=== PATIENT | male | born 1990 | race Caucasian/White ===

== ENCOUNTER 2017-01-07 16:26 | Emergency (ER) | payer OTHER ==
[2017-01-07 16:33] VITALS: BP 135/89; PULSE 75; RESP 17; TEMP 98.6
--- NOTE | 2017-01-07 17:14 | ED ---
Lower Extremity Injury HPI - General Chief Complaint: Extremity Injury, Lower Stated Complaint: Toe Pain Source: patient Mode of arrival: ambulatory Limitations: no limitations - History of Present Illness Initial Comments: Patient is a 26-year-old male who presents for evaluation for right big toe pain. Past medical history as below. Patient stated that the pain center 3 days ago. He is unsure if he "stubbed" it on something or dropped some shingles on it. Stable to ambulate on it. He has a history of broken toes in the past and states it feels similar. No history of gout. No overlying rashes. Denies any systemic symptoms such as fever, chills, headache, changes in vision, URI symptoms, shortness breath, cough, chest pain, nausea or vomiting , diarrhea, pain or burning with urination. - Related Data Home Medications Medication Instructions Recorded Confirmed No Known Home Medications [No 01/07/17 01/07/17 Known Home Medications] Allergies Allergy/AdvReac Type Severity Reaction Status Date / Time poison deanna extract Allergy Severe Rash/Hives Verified 01/07/17 17:02 strawberry Allergy Rash/Hives Verified 01/07/17 17:02 Review of Systems ROS Statement: Those systems with pertinent positive or pertinent negative responses have been documented in the HPI. ROS Other: All systems not noted in ROS Statement are negative. Past Medical History Additional Past Medical History / Comment(s): broken right hand, concussion History of Any Multi-Drug Resistant Organisms: None Reported Past Surgical History: No Surgical Hx Reported Past Psychological History: Anxiety, Depression Smoking Status: Current every day smoker Past Alcohol Use History: None Reported Past Drug Use History: Marijuana General Exam Limitations: no limitations General appearance: alert, in no apparent distress, other (No acute distress) Head exam: Present: atraumatic, normocephalic, normal inspection Eye exam: Present: normal appearance, PERRL, EOMI. Absent: scleral icterus, conjunctival injection, periorbital swelling ENT exam: Present: normal exam, mucous membranes moist Neck exam: Present: normal inspection. Absent: tenderness, meningismus, lymphadenopathy Respiratory exam: Present: normal lung sounds bilaterally. Absent: respiratory distress, wheezes, rales, rhonchi, stridor Cardiovascular Exam: Present: regular rate, normal rhythm, normal heart sounds. Absent: systolic murmur, diastolic murmur, rubs, gallop, clicks GI/Abdominal exam: Present: soft, normal bowel sounds. Absent: distended, tenderness, guarding, rebound, rigid Extremities exam: Present: normal inspection, full ROM, normal capillary refill , other (Pain with palpation of the PIP of the right first digit. No surrounding cellulitis or any real swelling. Full range of motion of the right knee, right ankle, right midfoot.). Absent: tenderness, pedal edema, joint swelling, calf tenderness Back exam: Present: normal inspection Neurological exam: Present: alert, oriented X3, CN II-XII intact Psychiatric exam: Present: normal affect, normal mood Skin exam: Present: warm, dry, intact, normal color. Absent: rash Course Vital Signs 01/07/17 16:30 Temperature 98.6 F Pulse Rate 75 Respiratory 17 Rate Blood Pressure 135/89 O2 Sat by Pulse 99 Oximetry Medical Decision Making - Medical Decision Making 1710: Patient is a 26-year-old male percents for evaluation for right foot pain. Questionable history of trauma. We'll order plain films of the right foot. 1750: Reviewed plain films. No acute fracture. Discussed with the patient. Doubt gout as there is no warmth to the area. Recommended 600 800 mg ibuprofen every 6-8 hours for the next 3 days. Elevation. Ice to the affected area. Provided walking boot. Encourage close follow-up with his primary care physician. Discussed signs and symptoms on when to return to the emergency department for further evaluation. Comfortable discharge home and follow-up. Disposition Clinical Impression: Foot pain, right Disposition: HOME SELF-CARE Condition: Good Instructions: Foot Sprain (ED) Referrals: None,Stated [Primary Care Provider] - 1-2 days Mik Paez MD [STAFF PHYSICIAN] - 1-2 days
--- NOTE | 2017-01-07 17:46 | XR ---
EXAMINATION TYPE: XR foot complete RT DATE OF EXAM: 01/07/2017 COMPARISON: NONE HISTORY: Pain TECHNIQUE: 3 views FINDINGS: Metatarsals are intact. I see no fracture nor dislocation. There are no erosions. IMPRESSION: Negative right foot exam.
== END 2017-01-07 18:31 | disposition home or self-care (01) ==
LOC: EC 16:26
DX: M79.671 Pain in right foot (principal); F17.200 Nicotine dependence, unspecified, uncomplicated; Z91.018 Allergy to other foods; Z91.09 Other allergy status, other than to drugs and biological substances
CPT/HCPCS: 99283

== ENCOUNTER 2017-02-09 16:45 | Emergency (ER) | payer OTHER ==
[2017-02-09 16:59] VITALS: BP 126/69; PULSE 69; RESP 16; TEMP 98
--- NOTE | 2017-02-09 17:16 | ED ---
General Adult HPI - General Chief complaint: Head Injury Stated complaint: Head Pain Time Seen by Provider: 02/09/17 17:04 Source: patient, RN notes reviewed Mode of arrival: ambulatory Limitations: no limitations - History of Present Illness Initial comments: 26 yo male presents to the emergency Department chief complaint of head injury. The patient states that last Saturday he fell backwards and hit his head when he is walking his dog. Recent states he did not pass out after the fall. Patient states that he doesn't have residual headache. Patient admits to history of multiple concussions in the past so he was concerned. Patient denies any fever chills any neck pain. Patient states he hasn't had any other symptoms with this. Patient was concerned due to his continued headache so he thought that he should be evaluated.Patient denies any recent fever, chills, shortness of breath, chest pain, back pain, abdominal pain, nausea vomiting, numbness or tingling, dysuria or hematuria, constipation or diarrhea, visual changes, or any other current symptoms. - Related Data Home Medications Medication Instructions Recorded Confirmed No Known Home Medications [No 01/07/17 02/09/17 Known Home Medications] Allergies Allergy/AdvReac Type Severity Reaction Status Date / Time poison deanna extract Allergy Severe Rash/Hives Verified 02/09/17 17:04 strawberry Allergy Rash/Hives Verified 02/09/17 17:04 Review of Systems ROS Statement: Those systems with pertinent positive or pertinent negative responses have been documented in the HPI. ROS Other: All systems not noted in ROS Statement are negative. Past Medical History Additional Past Medical History / Comment(s): broken right hand, concussion History of Any Multi-Drug Resistant Organisms: None Reported Past Surgical History: No Surgical Hx Reported Past Psychological History: Anxiety, Depression Smoking Status: Current every day smoker Past Alcohol Use History: None Reported Past Drug Use History: Marijuana General Exam - General Exam Comments Initial Comments: General: The patient is awake and alert, in no distress, and does not appear acutely ill. Eye: Pupils are equal, round and reactive to light, extra-ocular movements are intact; there is normal conjunctiva bilaterally. No signs of icterus. Ears, nose, mouth and throat: There are moist mucous membranes. Neck: The neck is supple, there is no tenderness. Cardiovascular: There is a regular rate and rhythm. No murmur, rub or gallop is appreciated. Respiratory: Lungs are clear to auscultation, respirations are non-labored, breath sounds are equal. No wheezes, stridor, rales, or rhonchi. Gastrointestinal: Soft, non-distended, non-tender abdomen without masses or organomegaly noted. There is no rebound or guarding present. No CVA tenderness. Bowel sounds are unremarkable. Back: There is no tenderness to palpation in the midline. There is no obvious deformity. No rashes noted. Musculoskeletal: Normal ROM, no tenderness, There is no pedal edema. There is no calf tenderness or swelling. Sensation intact. Pulses equal bilaterally 2+. Neurological: CN II-XII intact, There are no obvious motor or sensory deficits. Coordination appears grossly intact. Speech is normal. Skin: Skin is warm and dry and no rashes or lesions are noted. Psychiatric: Cooperative, appropriate mood & affect, normal judgment. Limitations: no limitations Course Vital Signs 02/09/17 16:57 Temperature 98 F Pulse Rate 69 Respiratory 16 Rate Blood Pressure 126/69 O2 Sat by Pulse 98 Oximetry Medical Decision Making - Medical Decision Making 26-year-old male presents with chief complaint of head injury. This time CAT scan is reviewed and negative. At this time we discussed patient may be having concussion-like symptoms. We discussed care for concussions. We discussed follow-up return parameters all questions. Patient stated understanding and plan. This and will be discharged home. - Radiology Data Radiology results: report reviewed, image reviewed Disposition Clinical Impression: Concussion without loss of consciousness Disposition: HOME SELF-CARE Condition: Stable Instructions: Concussion (ED) Additional Instructions: Please use medication as discussed. Please follow up with family doctor if symptoms have not improved over the next two days. Please return to the emergency room if your symptoms increase or worsen or for any other concerns. Referrals: Dennis Domínguez MD [REFERRING] - 1-2 days Time of Disposition: 17:40
--- NOTE | 2017-02-09 17:38 | CT ---
EXAMINATION TYPE: CT brain wo con DATE OF EXAM: 02/09/2017 COMPARISON: 12/30/2011 INDICATION: Patient complains of fall with headache and memory loss. Patient has a history of prior concussions. DLP: 773.7 mGycm, Automated exposure control for dose reduction was used. CONTRAST: None CT of the brain is performed utilizing 3 mm thick sections through the posterior fossa and 3 mm thick sections through the remaining calvarium. Study is performed within 24 hours of arrival to the hosp [facility]. No abnormal hyperdensity is present to suggest an acute intracranial hemorrhage. No mass lesion is evident. No acute infarcts are evident. Ventricles and sulci are appropriate for the patient age. Paranasal sinuses and mastoid air cells within the [id number] are clear. IMPRESSIONS: 1. Normal CT Brain
== END 2017-02-09 18:04 | disposition home or self-care (01) ==
LOC: EC 16:45
DX: S06.0X0A Concussion without loss of consciousness, initial encounter (principal); F17.200 Nicotine dependence, unspecified, uncomplicated; Z91.018 Allergy to other foods; Z91.048 Other nonmedicinal substance allergy status; W01.10XA Fall on same level from slipping, tripping and stumbling with subsequent striking against unspecified object, initial encounter; Y93.01 Activity, walking, marching and hiking
CPT/HCPCS: 70450; 99283

== ENCOUNTER 2017-05-11 07:53 | Emergency (ER) | payer OTHER ==
[2017-05-11] MEDS ORDERED: SODIUM CHLORIDE 0.9% 1,000 ML IV STA (08:10)
[2017-05-11] MEDS ORDERED: ONDANSETRON 4 MG/2 ML VIAL IVP STA (08:14)
[2017-05-11] MEDS ORDERED: HYDROmorphone 1 MG/ML 1 ML SYRINGE IVP STA (08:14)
[2017-05-11] MEDS ORDERED: KETOROLAC 30 MG/ML 1 ML VIAL IVP STA (08:14)
--- NOTE | 2017-05-11 08:16 | ED ---
General Adult HPI - General Chief complaint: Urogenital Stated complaint: Hematuria/Groin Pain Time Seen by Provider: 05/11/17 08:10 Source: patient, RN notes reviewed Mode of arrival: ambulatory Limitations: no limitations - History of Present Illness Initial comments: This a 26-year-old male presents emergency Department with chief complaint of lower abdominal pain, hematuria. Patient states this started this morning with sudden onset of pain. Patient states that he's never had any like this in the past. Patient states that nothing really makes it feel better or worse. Patient denies fever, chills, vomiting, diarrhea constipation. He states he has slight nausea from the pain. Patient denies any prior abdominal surgeries no history of kidney stones. Patient states that he does not have any drug ALLERGIES and denies any other complaints at this time - Related Data Previous Rx's Medication Instructions Recorded Hydrocodone/Acetaminophen [Lomira 1 tab PO Q6HR PRN #20 tab 05/11/17 5-325] Ibuprofen [Motrin] 600 mg PO Q8HR PRN #30 tab 05/11/17 Ondansetron Odt [Zofran Odt] 4 mg PO Q8HR PRN #10 tab 05/11/17 Tamsulosin [Flomax] 0.4 mg PO DAILY #7 cap 05/11/17 Allergies Allergy/AdvReac Type Severity Reaction Status Date / Time poison deanna extract Allergy Severe Rash/Hives Verified 05/11/17 07:58 strawberry Allergy Rash/Hives Verified 05/11/17 07:58 Review of Systems ROS Statement: Those systems with pertinent positive or pertinent negative responses have been documented in the HPI. ROS Other: All systems not noted in ROS Statement are negative. Past Medical History Additional Past Medical History / Comment(s): broken right hand, concussion History of Any Multi-Drug Resistant Organisms: None Reported Past Surgical History: No Surgical Hx Reported Past Psychological History: ADD/ADHD, Anxiety Smoking Status: Current every day smoker Past Alcohol Use History: Rare Past Drug Use History: Marijuana General Exam Limitations: no limitations General appearance: alert, in no apparent distress Head exam: Present: atraumatic, normocephalic, normal inspection Respiratory exam: Present: normal lung sounds bilaterally. Absent: respiratory distress, wheezes, rales, rhonchi, stridor Cardiovascular Exam: Present: regular rate, normal rhythm, normal heart sounds. Absent: systolic murmur, diastolic murmur, rubs, gallop, clicks GI/Abdominal exam: Present: soft, tenderness (Moderate suprapubic tenderness), normal bowel sounds. Absent: distended, guarding, rebound, rigid exam: Present: normal inspection. Absent: testicular tenderness, scrotal swelling, vertical testicular lie Back exam: Present: full ROM. Absent: tenderness, CVA tenderness (R), CVA tenderness (L) Skin exam: Present: warm, dry, intact, normal color. Absent: rash Course Vital Signs 05/11/17 05/11/17 07:55 09:34 Temperature 98.8 F Pulse Rate 106 H 64 Respiratory 22 18 Rate Blood Pressure 125/78 106/57 O2 Sat by Pulse 96 98 Oximetry Medical Decision Making - Medical Decision Making 26-year-old male present emergency department for lower abdominal pain, or flank pain. Patient has multiple bilateral nephrolithiasis. Patient has hematuria consistent with kidney stones. Patient pain worsened after urinate but did feel better after Toradol. Patient has noticed the pain no evidence of torsion. Patient we discharged with [facility] follow up with urology. - Lab Data Result diagrams: 05/11/17 08:20 05/11/17 08:20 Lab Results 05/11/17 05/11/17 05/11/17 Range/Units 08:09 08:20 08:20 WBC 8.1 (3.8-10.6) k/uL RBC 4.85 (4.30-5.90) m/uL Hgb 14.3 (13.0-17.5) gm/dL Hct 44.8 (39.0-53.0) % MCV 92.4 (80.0-100.0) fL MCH 29.6 (25.0-35.0) pg MCHC 32.0 (31.0-37.0) g/dL RDW 13.1 (11.5-15.5) % Plt Count 232 (150-450) k/uL Neutrophils % 57 % Lymphocytes % 28 % Monocytes % 8 % Eosinophils % 6 % Basophils % 1 % Neutrophils # 4.6 (1.3-7.7) k/uL Lymphocytes # 2.2 (1.0-4.8) k/uL Monocytes # 0.6 (0-1.0) k/uL Eosinophils # 0.5 (0-0.7) k/uL Basophils # 0.0 (0-0.2) k/uL Sodium 142 (137-145) mmol/L Potassium 4.6 (3.5-5.1) mmol/L Chloride 109 H (98-107) mmol/L Carbon Dioxide 22 (22-30) mmol/L Anion Gap 11 mmol/L BUN 11 (9-20) mg/dL Creatinine 0.87 (0.66-1.25) mg/dL Est GFR (MDRD) Af Amer >60 (>60 ml/min/1.73 sqM) Est GFR (MDRD) Non-Af >60 (>60 ml/min/1.73 sqM) Glucose 96 (74-99) mg/dL Calcium 9.9 (8.4-10.2) mg/dL Total Bilirubin 0.7 (0.2-1.3) mg/dL AST 29 (17-59) U/L ALT 33 (21-72) U/L Alkaline Phosphatase 85 (38-126) U/L Total Protein 7.6 (6.3-8.2) g/dL Albumin 4.5 (3.5-5.0) g/dL Amylase 57 (30-110) U/L Lipase 82 (23-300) U/L Urine Color Light Red Urine Appearance Clear (Clear) Urine pH 6.5 (5.0-8.0) Ur Specific [place] 1.020 (1.001-1.035) Urine Protein 1+ H (Negative) Urine Glucose (UA) Negative (Negative) Urine Ketones Trace H (Negative) Urine Blood Large H (Negative) Urine Nitrite Negative (Negative) Urine Bilirubin Negative (Negative) Urine Urobilinogen 2.0 (<2.0) mg/dL Ur Leukocyte Esterase Small H (Negative) Urine RBC >182 H (0-5) /hpf Urine WBC 8 H (0-5) /hpf Urine Mucus Many H (None) /hpf Disposition Clinical Impression: Nephrolithiasis, Hematuria Disposition: HOME SELF-CARE Condition: Stable Instructions: Kidney Stones (ED) Additional Instructions: Please return to the Emergency Department if symptoms worsen or any other concerns. Prescriptions: Hydrocodone/Acetaminophen [Lomira 5-325] 1 tab PO Q6HR PRN #20 tab PRN Reason: Pain Ibuprofen [Motrin] 600 mg PO Q8HR PRN #30 tab PRN Reason: Pain Ondansetron Odt [Zofran Odt] 4 mg PO Q8HR PRN #10 tab PRN Reason: Nausea Tamsulosin [Flomax] 0.4 mg PO DAILY #7 cap Referrals: Gilbert Andre DO [Primary Care Provider] - 1-2 days Sebastian Gardner MD [STAFF PHYSICIAN] - 1-2 days Time of Disposition: 10:11
[2017-05-11 08:29] LABS: Basophils % (A) 1 %; CH 30.4; CHCM 33.1; Eosinophils # (A) 0.5 k/uL (0-0.7); Eosinophils % (A) 6 %; HCT 44.8 % (39.0-53.0); HDW 2.18; HGB 14.3 gm/dL (13.0-17.5); Luc # (Auto) 0.12; Luc % (Auto) 2; Lymphocytes # (A) 2.2 k/uL (1.0-4.8); Lymphocytes % (A) 28 %; MCH 29.6 pg (25.0-35.0); MCV 92.4 fL (80.0-100.0); Monocytes # (A) 0.6 k/uL (0-1.0); Monocytes % (A) 8 %; Neutrophils # (A) 4.6 k/uL (1.3-7.7); Neutrophils % (A) 57 %; RBC 4.85 m/uL (4.30-5.90); RDW 13.1 % (11.5-15.5); WBC 8.1 k/uL (3.8-10.6); WBC (Perox) 8.54
[2017-05-11 08:31] LABS: Appearance,Urine Clear (Clear); Bilirubin,Urine Negative (Negative); Glucose,Urine (UA) Negative (Negative); Ketones,Urine Trace (Negative); Leukocyte Esterase,Urine Small (Negative); Mucus,Urine Many /hpf; Nitrite,Urine Negative (Negative); PH, Urine 6.5 (5.0-8.0); Particle Count 6548; Protein,Urine 1+ (Negative); RBC,Urine >182 /hpf (0-5); UA Billing (MACRO vs. MICRO) MICRO; WBC,Urine 8 /hpf (0-5)
--- NOTE | 2017-05-11 08:38 | XR ---
EXAMINATION TYPE: XR KUB , 2 VIEWS DATE OF EXAM ORDERED: 05/11/2017 HISTORY: abdominal pain. COMPARISON: None. FINDINGS: The lung bases are clear. Within the abdomen, the abdominal gas pattern is normal. There is no evidence of obstruction or free air. No unusual calcifications are seen. IMPRESSION: NORMAL ABDOMEN.
[2017-05-11 08:39] LABS: ALT 33 U/L (21-72); AST 29 U/L (17-59); Alkaline Phosphatase 85 U/L (38-126); Amylase 57 U/L (30-110); Anion Gap 11 mmol/L; Blood Urea Nitrogen 11 mg/dL (9-20); Calcium 9.9 mg/dL (8.4-10.2); Carbon Dioxide 22 mmol/L (22-30); Chloride 109 mmol/L (98-107); Glucose 96 mg/dL (74-99); Non-African American GFR(MDRD) >60 (>60 ml/min/1.73 sqM); Potassium 4.6 mmol/L (3.5-5.1); Sodium 142 mmol/L (137-145); Total Bilirubin 0.7 mg/dL (0.2-1.3); Total Protein 7.6 g/dL (6.3-8.2)
[2017-05-11 09:36] VITALS: RESP 18
--- NOTE | 2017-05-11 09:41 | CT ---
EXAMINATION TYPE: CT abdomen pelvis wo con DATE OF EXAM: 05/11/2017 COMPARISON: NONE HISTORY: Low pelvic pain CT DLP: 239.4 mGycm Automated exposure control for dose reduction was used. FINDINGS: Visualized portions of the lungs are clear. There is no pleural or pericardial fluid. The h eart is not enlarged. Within the abdomen, the liver, spleen and gallbladder are normal. Both adrenal glands are normal. There are multiple, nonobstructing renal calculi bilaterally. The largest on the right is in the midd le pole calyx and measures 3.7 mm. The largest on the left is in an upper pole calyx and measures 3.9 mm. Very Limited views of the pancreas are unremarkable. There is no significant retroperitoneal, iliac or inguinal adenopathy. The bladder is not distended but otherwise unremarkable. There is no significant diverticular change and there is no radiographic evidence of diverticulitis. The appendix is normal. There is mucosal thickening involving the sigmoid and descending colons. Small bowel loops are normal in caliber. There is no free fluid and no free air. No bony lesion is seen. IMPRESSION: 1. THICKENING OF THE DESCENDING AND SIGMOID COLON SUGGESTIVE OF COLITIS. PLEASE CORRELATE CLINICALLY. 2. BILATERAL, NONOBSTRUCTING NEPHROLITHIASIS.
[2017-05-11] MEDS ORDERED: HYDROmorphone 2 MG/ML 1 ML SYRINGE IVP STA (10:02)
[2017-05-11] MEDS ORDERED: TAMSULOSIN 0.4 MG CAP.ER.24H PO STA (10:09)
[2017-05-11 10:23] VITALS: BP 136/64; PULSE 66; TEMP 97.5
== END 2017-05-11 10:23 | disposition home or self-care (01) ==
LOC: EC 07:53
DX: N20.0 Calculus of kidney (principal); F17.200 Nicotine dependence, unspecified, uncomplicated; Z91.018 Allergy to other foods; Z91.09 Other allergy status, other than to drugs and biological substances; Z53.8 Procedure and treatment not carried out for other reasons
CPT/HCPCS: 99284; 96374; 96375 ×2; 96361; 36415; 80053; 82150; 83690; 85025; 81001; 87086; 74000; 74176; J1170; J2405; J1885

== ENCOUNTER → 2017-07-04 | Outpatient (CLI) | payer OTHER ==
[2017-07-04 15:51] LABS: Basophils # (A) 0.1 k/uL (0-0.2); Basophils % (A) 1 %; Eosinophils # (A) 0.2 k/uL (0-0.7); Eosinophils % (A) 3 %; HCT 41.7 % (39.0-53.0); HGB 13.4 gm/dL (13.0-17.5); Lymphocytes # (A) 2.1 k/uL (1.0-4.8); Lymphocytes % (A) 31 %; MCHC 32.1 g/dL (31.0-37.0); MCV 93.6 fL (80.0-100.0); Mean Platelet Volume 7.8; Monocytes # (A) 0.4 k/uL (0-1.0); Monocytes % (A) 7 %; Neutrophils # (A) 3.9 k/uL (1.3-7.7); Neutrophils % (A) 57 %; Platelet Count 168 k/uL (150-450); RBC 4.45 m/uL (4.30-5.90); RDW 13.1 % (11.5-15.5); WBC 6.7 k/uL (3.8-10.6)
[2017-07-04 15:52] LABS: Appearance,Urine Clear (Clear); Bilirubin,Urine Negative (Negative); Blood,Urine Negative (Negative); Color,Urine Yellow; Glucose,Urine (UA) Negative (Negative); Ketones,Urine Negative (Negative); Leukocyte Esterase,Urine Negative (Negative); Nitrite,Urine Negative (Negative); Protein,Urine Negative (Negative); Urobilinogen,Urine <2.0 mg/dL (<2.0)
[2017-07-04 16:01] LABS: Anion Gap 12 mmol/L; Blood Urea Nitrogen 15 mg/dL (9-20); Carbon Dioxide 27 mmol/L (22-30); Chloride 102 mmol/L (98-107); Potassium 4.1 mmol/L (3.5-5.1); Sodium 141 mmol/L (137-145)
== END | disposition home or self-care (01) ==
LOC: LABWHC1 15:27
PROVIDERS: ATTEND Urology
DX: N20.0 Calculus of kidney (principal)
CPT/HCPCS: 36415; 80051; 81003; 82565; 84520; 85025

== ENCOUNTER 2017-07-08 12:03 | Day surgery (SDC) | payer MEDICAID, OTHER ==
[2017-06-27 16:45] VITALS: BMI 21.1
--- NOTE | 2017-07-08 12:01 | XR ---
EXAMINATION TYPE: XR KUB DATE OF EXAM: 07/08/2017 COMPARISON: 05/11/2017 HISTORY: Renal stones TECHNIQUE: One view abdominal series FINDINGS: The osseous structures are intact. The bowel gas pattern is nonspecific. Right kidney: There remain approximately 4 punctate calcifications measuring 3 mm or less overlying t he right kidney. Visualization is somewhat limited on today's exam due to overlying bowel content. Left kidney: There appear to be at least 2 calcifications overlying the lower pole of the left kidney the largest measuring 4 mm. Findings are stable. Pelvis: 2 tiny pelvic calcifications on the left are stable from the previous exam and likely vascula r. IMPRESSION: 1. Nonspecific abdomen. Stable bilateral nephrolithiasis.
[~2017-07-08 12:03] MED LIST: Pre Op ABX Message 1 EACH MISC MISCELLANE ONE
[2017-07-08 12:37] VITALS: TEMP 98.1
[2017-07-08] MEDS ORDERED: LIDOCAINE 1% 20 ML VIAL (10MG/ML) FOR IV START INTRADERMA ONE (12:45)
[2017-07-08] MEDS ORDERED: LACTATED RINGERS 1,000 ML IV ONE (12:45)
[2017-07-08] MEDS ORDERED: PROPOFOL 10 MG/ML 20 ML VIAL IV ONE (14:01)
[2017-07-08] MEDS ORDERED: GLYCOPYRROLATE 0.2 MG/ML 2 ML VIAL ONE (14:01)
[2017-07-08] MEDS ORDERED: LIDOCAINE 1% INJ 10MG/ML (20 ML MDV) ONE (14:01)
[2017-07-08] MEDS ORDERED: KETAMINE 10 MG/ML 20 ML VIAL ONE (14:01)
[2017-07-08] MEDS ORDERED: MIDAZOLAM 2 MG/2 ML VIAL ONE (14:01)
[2017-07-08] MEDS ORDERED: fentaNYL (PF) 50 MCG/ML 2 ML AMP ONE (14:01)
--- NOTE | 2017-07-08 14:42 | P.OP ---
Date of Procedure: 07/08/17 Preoperative Diagnosis: Right renal calculi Postoperative Diagnosis: Right renal calcului Procedure(s) Performed: Extracorporal shockwave lithotripsy of right renal calculi Anesthesia: MAC Surgeon: Sebastian Gardner Estimated Blood Loss (ml): 0 Pathology: none sent Condition: stable Disposition: PACU Indications for Procedure: The patient is a 26-year-old male with intermittent right flank pain. Computed tomography scan identified several nonobstructive right renal calculi measuring up to 2 4 mm in diameter. Treatment options were reviewed with Dr. Santos and ESWL has been chosen. The patient is aware that there is no guarantee that his pain will resolve following treatment. Description of Procedure: The patient was taken to the operating suite where he was placed in the supine position on the fluoroscopy table. The 3-4 mm calculus in the midportion of the right kidney was localized using biplanar fluoroscopy. Intravenous sedation was given. Lithotripsy was performed using the Dornier compact delta unit at a rate of 60 shocks per minute. The power was gradually increased to level 4. A 2 minute pause was taken after 200 shocks. The calculus was no longer identifiable after 660 shocks. An attempt was then made to identify another calculus in the mid pole of the kidney but at this point the patient began coughing and required repositioning. Despite multiple attempts it was impossible to identify any additional calculi within the kidney. Anesthesia was reversed and the patient was returned the recovery room awake and in satisfactory condition will be seen back in approximately 1 week for follow-up.
[2017-07-08 15:17] VITALS: BP 120/60; PULSE 65; RESP 16
[2017-07-08] MEDS ORDERED: Acetaminophen-Codeine 300-30mg TAB PO ONE (15:24)
== END 2017-07-08 15:55 | disposition home or self-care (01) ==
LOC: ORWHC2ENDO 12:03
PROVIDERS: ATTEND Urology
DX: N20.0 Calculus of kidney (principal); F17.210 Nicotine dependence, cigarettes, uncomplicated; F41.9 Anxiety disorder, unspecified; F90.9 Attention-deficit hyperactivity disorder, unspecified type; Z79.899 Other long term (current) drug therapy
CPT/HCPCS: 74018; 50590; J2250; J2001; J3010; J2704

== ENCOUNTER 2017-07-10 14:47 | Emergency (ER) | payer OTHER ==
[2017-07-10] MEDS ORDERED: METOCLOPRAMIDE 5 MG/ML 2 ML VIAL IVP STA (15:39)
[2017-07-10] MEDS ORDERED: SODIUM CHLORIDE 0.9% 1,000 ML IV STA (15:39)
[2017-07-10] MEDS ORDERED: HYDROmorphone 0.5 MG/0.5 ML SYRINGE IVP STA (15:39)
[2017-07-10] MEDS ORDERED: KETOROLAC 30 MG/ML 1 ML VIAL IVP STA (15:39)
--- NOTE | 2017-07-10 15:43 | ED ---
General Adult HPI - General Chief complaint: Abdominal Pain Stated complaint: Abd Pain Time Seen by Provider: 07/10/17 15:28 Source: patient, family, RN notes reviewed, old records reviewed Mode of arrival: wheelchair Limitations: no limitations - History of Present Illness Initial comments: Chief complaint and history of present illness this is a 26-year-old male known history of kidney stones. Several days ago the patient had lithotripsy performed. 3 hours ago started having flank pain nausea and vomiting. - Related Data Previous Rx's Medication Instructions Recorded Acetaminophen-Codeine 300-30mg 1 tab PO Q6H PRN #10 tablet 07/08/17 [Tylenol w/codeine #3] Hydrocodone/Acetaminophen [[place] 1 each PO Q6HR PRN #20 tab 07/10/17 5-325] Ondansetron Odt [Zofran Odt] 4 mg PO Q8HR PRN #10 tab 07/10/17 Tamsulosin [Flomax] 0.4 mg PO DAILY #14 cap 07/10/17 Allergies Allergy/AdvReac Type Severity Reaction Status Date / Time poison deanna extract Allergy Severe Rash/Hives Verified 07/10/17 15:25 strawberry Allergy Rash/Hives Verified 07/10/17 15:25 Review of Systems ROS Statement: Those systems with pertinent positive or pertinent negative responses have been documented in the HPI. Review of systems. No headache or visual acuity changes no chest pain or shortness of breath. The patient has left flank pain. Nausea vomiting. All systems are reviewed. Past medical problems no other medical problems other than kidney stones. Recently lithotripsy, several days ago. Surgeries none. Family history no stones or cancer. Patient has no ALLERGIES. He does smoke strongly encouraged. He denies alcohol use. ROS Other: All systems not noted in ROS Statement are negative. 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 no family history Past Psychological History: Anxiety, Depression Smoking Status: Current every day smoker Past Alcohol Use History: None Reported Past Drug Use History: Marijuana - Past Family History family Family Medical History: Unable to Obtain Additional Family Medical History / Comment(s): no family hx General Exam - General Exam Comments Initial Comments: General: The patient is awake and alert, in moderate distress because of left flank pain causing nausea vomiting and discomfort. Pain goes from the left flank to left lower quadrant and to the left groin area. Vital signs temperature 96.8 pulse 53 respiratory rate 18 pulse ox 99% room air blood pressure 138/69. Eye: Pupils are equal, round and reactive to light, extra-ocular movements are intact ; there is normal conjunctiva bilaterally. No signs of icterus. Ears, nose, mouth and throat: There are moist mucous membranes and no oral lesions. Neck: The neck is supple, there is no tenderness Cardiovascular: There is a regular rate and rhythm. No murmur, rub or gallop is appreciated. Respiratory: Lungs are clear to auscultation, respirations are non-labored, breath sounds are equal. No wheezes, stridor, rales, or rhonchi. Gastrointestinal: Left-sided abdominal pain radiating to the left groin area. Back: Left flank pain, no rash. Musculoskeletal: Normal movement upper and lower extremities. Neurological: No complaint of or evidence of any neuro deficits. Skin: Skin normal Limitations: no limitations Course Vital Signs 07/10/17 15:05 Temperature 96.8 F L Pulse Rate 53 L Respiratory 18 Rate Blood Pressure 138/69 O2 Sat by Pulse 99 Oximetry Medical Decision Making - Medical Decision Making Medical decision making; the patient's urine because of probable left ureterolithiasis. The patient had lithotripsy just several days ago, pain started acutely 3 hours ago. Urine is dark. Nausea vomiting. Labs show white count of 17.7 hemoglobin 13 hematocrit 40, potassium 3.4 BUN 10 creatinine 0.92 with a GFR greater than 60 and a glucose of 152. Urinalysis shows large amount of blood and greater than 182 red blood cells. No white blood cells. I reviewed the x-rays and it does appear to be some calcifications in the left lower quadrant, suspect stones versus phlebolith. Awaiting radiologist's final impression. X-ray of the abdomen was done and reviewed by radiologist his impression is; nonspecific abdomen. Nonvisualization of previous left sided renal stones. As read by Dr. Tracy Patient is feeling better after IV hydration and medications. advised to continue with medications prescribed by his urologist. Strain the urine. Call make an appointment with urologist if pain persists or return emergency room is unable to control the pain. Advised increase water intake. - Lab Data Result diagrams: 07/10/17 15:45 07/10/17 15:45 Lab Results 07/10/17 07/10/17 07/10/17 Range/Units 15:45 15:45 17:25 WBC 17.7 H (3.8-10.6) k/uL RBC 4.45 (4.30-5.90) m/uL Hgb 13.3 (13.0-17.5) gm/dL Hct 40.5 (39.0-53.0) % MCV 91.0 (80.0-100.0) fL MCH 29.9 (25.0-35.0) pg MCHC 32.9 (31.0-37.0) g/dL RDW 13.3 (11.5-15.5) % Plt Count 201 (150-450) k/uL Neutrophils % 71 % Lymphocytes % 22 % Monocytes % 4 % Eosinophils % 1 % Basophils % 0 % Neutrophils # 12.7 H (1.3-7.7) k/uL Lymphocytes # 3.9 (1.0-4.8) k/uL Monocytes # 0.7 (0-1.0) k/uL Eosinophils # 0.2 (0-0.7) k/uL Basophils # 0.1 (0-0.2) k/uL Sodium 143 (137-145) mmol/L Potassium 3.4 L (3.5-5.1) mmol/L Chloride 105 (98-107) mmol/L Carbon Dioxide 23 (22-30) mmol/L Anion Gap 15 mmol/L BUN 10 (9-20) mg/dL Creatinine 0.92 (0.66-1.25) mg/dL Est GFR (MDRD) Af Amer >60 (>60 ml/min/1.73 sqM) Est GFR (MDRD) Non-Af >60 (>60 ml/min/1.73 sqM) Glucose 156 H (74-99) mg/dL Calcium 9.8 (8.4-10.2) mg/dL Total Bilirubin 0.6 (0.2-1.3) mg/dL AST 22 (17-59) U/L ALT 33 (21-72) U/L Alkaline Phosphatase 76 (38-126) U/L Total Protein 7.3 (6.3-8.2) g/dL Albumin 4.6 (3.5-5.0) g/dL Urine Color Light Red Urine Appearance Cloudy (Clear) Urine pH 6.0 (5.0-8.0) Ur Specific [place] 1.017 (1.001-1.035) Urine Protein 1+ H (Negative) Urine Glucose (UA) Negative (Negative) Urine Ketones Negative (Negative) Urine Blood Large H (Negative) Urine Nitrite Negative (Negative) Urine Bilirubin Negative (Negative) Urine Urobilinogen <2.0 (<2.0) mg/dL Ur Leukocyte Esterase Trace H (Negative) Urine RBC >182 H (0-5) /hpf Urine WBC 7 H (0-5) /hpf Urine Mucus Few H (None) /hpf Disposition Clinical Impression: Ureterolithiasis Disposition: HOME SELF-CARE Condition: Fair Instructions: Kidney Stones (ED) Additional Instructions: Increase fluids, strain urine. Follow-up family physician and your urologist. Prescriptions: Hydrocodone/Acetaminophen [[place] 5-325] 1 each PO Q6HR PRN #20 tab PRN Reason: Pain Ondansetron Odt [Zofran Odt] 4 mg PO Q8HR PRN #10 tab PRN Reason: Nausea Tamsulosin [Flomax] 0.4 mg PO DAILY #14 cap Referrals: Sebastian Gardner MD [STAFF PHYSICIAN] - 1-2 days Time of Disposition: 18:38
[2017-07-10 15:50] LABS: Basophils # (A) 0.1 k/uL (0-0.2); Basophils % (A) 0 %; Eosinophils # (A) 0.2 k/uL (0-0.7); Eosinophils % (A) 1 %; HCT 40.5 % (39.0-53.0); HGB 13.3 gm/dL (13.0-17.5); Lymphocytes # (A) 3.9 k/uL (1.0-4.8); Lymphocytes % (A) 22 %; MCH 29.9 pg (25.0-35.0); MCHC 32.9 g/dL (31.0-37.0); Monocytes # (A) 0.7 k/uL (0-1.0); Monocytes % (A) 4 %; Neutrophils # (A) 12.7 k/uL (1.3-7.7); Neutrophils % (A) 71 %; Platelet Count 201 k/uL (150-450); RBC 4.45 m/uL (4.30-5.90); RDW 13.3 % (11.5-15.5); WBC 17.7 k/uL (3.8-10.6)
[2017-07-10 15:58] LABS: ALT 33 U/L (21-72); AST 22 U/L (17-59); Albumin 4.6 g/dL (3.5-5.0); Alkaline Phosphatase 76 U/L (38-126); Anion Gap 15 mmol/L; Blood Urea Nitrogen 10 mg/dL (9-20); Calcium 9.8 mg/dL (8.4-10.2); Carbon Dioxide 23 mmol/L (22-30); Chloride 105 mmol/L (98-107); Glucose 156 mg/dL (74-99); Potassium 3.4 mmol/L (3.5-5.1); Sodium 143 mmol/L (137-145); Total Bilirubin 0.6 mg/dL (0.2-1.3); Total Protein 7.3 g/dL (6.3-8.2)
--- NOTE | 2017-07-10 16:27 | XR ---
EXAMINATION TYPE: XR abdomen 2V DATE OF EXAM: 07/10/2017 COMPARISON: 07/08/2017 INDICATION: Abdomen pain left flank pain lithotripsy right side TECHNIQUE: Single view abdomen upright view FINDINGS: There is a nonspecific bowel gas pattern. Nonspecific small bowel gas is within the midabdomen. Colon ic bowel gas is present. Psoas margins are normal. No organomegaly is present. Renal stones are not identified. Previous left-sided renal stones are not identified. A couple of leroy cifications are within the left hemipelvis likely represent phleboliths. These were present previousl y. IMPRESSION: 1. Nonspecific abdomen. 2. Nonvisualization of previous left-sided renal stones.
[2017-07-10 17:41] LABS: Appearance,Urine Cloudy (Clear); Bilirubin,Urine Negative (Negative); Blood,Urine Large (Negative); Color,Urine Light Red; Glucose,Urine (UA) Negative (Negative); Ketones,Urine Negative (Negative); Leukocyte Esterase,Urine Trace (Negative); Mucus,Urine Few /hpf; Nitrite,Urine Negative (Negative); Protein,Urine 1+ (Negative); RBC,Urine >182 /hpf (0-5); Specific Gravity,Urine 1.017 (1.001-1.035); Urobilinogen,Urine <2.0 mg/dL (<2.0); WBC,Urine 7 /hpf (0-5)
[2017-07-10] MEDS ORDERED: ONDANSETRON 4 MG/2 ML VIAL IVP STA (18:41)
[2017-07-10] MEDS ORDERED: HYDROmorphone 2 MG/ML 1 ML SYRINGE IVP STA (18:44)
[2017-07-10 19:13] VITALS: BP 148/78; PULSE 62; RESP 16; TEMP 98.5
== END 2017-07-10 19:13 | disposition home or self-care (01) ==
LOC: EC 14:47
DX: N20.1 Calculus of ureter (principal); F17.200 Nicotine dependence, unspecified, uncomplicated; Z91.018 Allergy to other foods; Z91.09 Other allergy status, other than to drugs and biological substances
CPT/HCPCS: 36415; 80053; 85025; 81001; 87086; 74019; 99284; 96374; 96375 ×3; 96376; 96361 ×2; J1170 ×2; J2765; J2405; J1885

== ENCOUNTER → 2017-07-12 | Outpatient (CLI) | payer OTHER ==
--- NOTE | 2017-07-12 12:22 | XR ---
EXAMINATION TYPE: XR KUB DATE OF EXAM: 07/12/2017 COMPARISON: NONE HISTORY: Follow-up stones TECHNIQUE: One view abdominal series FINDINGS: The osseous structures are intact. The bowel gas pattern is nonspecific. Lung bases are clear. Renal outlines are obscured by overlying bowel content with extensive retained fecal debris. Left kidney: there 3 punctate calcifications measuring 3 mm or less involving the lower pole. Additio dirk, there suspicion for a calcification adjacent to the superior endplate of L4 on the left measur ing 3 mm in diameter which could been the course of the left ureter. Right kidney: Right renal outline is particularly limited due to severe retention of fecal debris. As sessment for renal calculus nondiagnostic. IMPRESSION: 1. Limited exam due to severe fecal retention obscuring renal outlines. At least 3 calcifications on the left are suspected involving the lower pole measuring 3 mm or less. Additionally a 3 mm mid left ureteral calculus is in the differential diagnosis as discussed above.
== END | disposition home or self-care (01) ==
LOC: RADXRMAIN 11:58
PROVIDERS: ATTEND Urology
DX: N20.0 Calculus of kidney (principal); K59.00 Constipation, unspecified
CPT/HCPCS: 74018

== ENCOUNTER → 2017-07-16 | Outpatient (CLI) | payer OTHER ==
--- NOTE | 2017-07-17 03:43 | MR ---
EXAMINATION TYPE: MR lumbar spine wo/w con DATE OF EXAM: 07/16/2017 COMPARISON: NONE HISTORY: Low back pain TECHNIQUE: Multiplanar, multisequence images of the lumbar spine were acquired utilizing [address] gadolinium contrast. The lumbar vertebra have normal alignment. Disc spaces are fairly well-maintained. There is a small p osterior central disc herniation at L5-S1. There is no paraspinal mass. There is no compression fract ure. I see no pathologic enhancement. The neural foramina are fairly well-maintained. There is no randy dence of focal bone destruction. IMPRESSION: Small posterior disc herniation at L5-S1. No spinal stenosis. No fracture.
== END | disposition home or self-care (01) ==
LOC: RADMRIMAIN 20:50
PROVIDERS: ATTEND Psychiatry & Neurology Neurology
DX: M51.17 Intervertebral disc disorders with radiculopathy, lumbosacral region (principal)
CPT/HCPCS: 72158; A9581

== ENCOUNTER 2017-07-20 13:11 | Emergency (ER) | payer OTHER ==
[2017-07-20] MEDS ORDERED: ONDANSETRON 4 MG/2 ML VIAL IVP STA (13:41)
[2017-07-20] MEDS ORDERED: HYDROmorphone 2 MG/ML 1 ML SYRINGE IVP STA (13:41)
[2017-07-20] MEDS ORDERED: SODIUM CHLORIDE 0.9% 1,000 ML IV STA (13:41)
[2017-07-20 13:55] LABS: Basophils # (A) 0.2 k/uL (0-0.2); Basophils % (A) 1 %; Eosinophils # (A) 0.3 k/uL (0-0.7); Eosinophils % (A) 2 %; HCT 44.8 % (39.0-53.0); HGB 14.1 gm/dL (13.0-17.5); Lymphocytes # (A) 4.2 k/uL (1.0-4.8); Lymphocytes % (A) 20 %; MCH 29.9 pg (25.0-35.0); MCHC 31.5 g/dL (31.0-37.0); MCV 94.9 fL (80.0-100.0); Mean Platelet Volume 8.3; Monocytes # (A) 1.1 k/uL (0-1.0); Monocytes % (A) 6 %; Neutrophils # (A) 14.5 k/uL (1.3-7.7); Neutrophils % (A) 70 %; Platelet Count 229 k/uL (150-450); RBC 4.72 m/uL (4.30-5.90); RDW 13.5 % (11.5-15.5); WBC 20.5 k/uL (3.8-10.6)
[2017-07-20 14:01] LABS: Appearance,Urine Clear (Clear); Bilirubin,Urine 2+ (Negative); Blood,Urine Large (Negative); Color,Urine Dark Brown; Glucose,Urine (UA) Negative (Negative); Ketones,Urine Negative (Negative); Leukocyte Esterase,Urine Negative (Negative); Mucus,Urine Occasional /hpf; Nitrite,Urine Positive (Negative); Protein,Urine Trace (Negative); RBC,Urine >182 /hpf (0-5); Specific Gravity,Urine 1.017 (1.001-1.035); WBC,Urine 34 /hpf (0-5)
--- NOTE | 2017-07-20 14:01 | ED ---
General Adult HPI - General Chief complaint: Abdominal Pain Stated complaint: Abd Pain Time Seen by Provider: 07/20/17 13:31 Source: patient, RN notes reviewed Mode of arrival: ambulatory Limitations: no limitations - History of Present Illness Initial comments: Patient 26-year-old male significant past medical history for kidney stones, who presents emergency room today with chief complaint of increased nausea vomiting and left-sided flank pain. Patient states that was diagnosed kidney stone one week ago. Patient states pain is increased days have increased nausea vomiting with it. Patient denies any other complaints or symptoms. Patient denies any recent fever, chills, shortness of breath, chest pain, numbness or tingling, dysuria or hematuria, constipation or diarrhea, headaches or visual changes, or any other complaints. - Related Data Home Medications Medication Instructions Recorded Confirmed Hydrocodone/Acetaminophen [[place] 1 tab PO Q6HR PRN 07/20/17 07/20/17 5-325] Previous Rx's Medication Instructions Recorded Acetaminophen-Codeine 300-30mg 1 tab PO Q6H PRN #10 tablet 07/08/17 [Tylenol w/codeine #3] Ondansetron Odt [Zofran Odt] 4 mg PO Q8HR PRN #10 tab 07/10/17 Tamsulosin [Flomax] 0.4 mg PO DAILY #14 cap 07/10/17 Allergies Allergy/AdvReac Type Severity Reaction Status Date / Time poison deanna extract Allergy Severe Rash/Hives Verified 07/20/17 13:19 strawberry Allergy Rash/Hives Verified 07/20/17 13:19 Review of Systems ROS Statement: Those systems with pertinent positive or pertinent negative responses have been documented in the HPI. ROS Other: All systems not noted in ROS Statement are negative. 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 no family history Past Psychological History: Anxiety, Depression Smoking Status: Current every day smoker Past Alcohol Use History: None Reported Past Drug Use History: Marijuana - Past Family History family Family Medical History: Unable to Obtain Additional Family Medical History / Comment(s): no family hx General Exam Limitations: no limitations General appearance: alert, other (Vomiting) Head exam: Present: atraumatic, normocephalic, normal inspection Eye exam: Present: normal appearance, EOMI ENT exam: Present: normal exam, mucous membranes moist Neck exam: Present: normal inspection, full ROM Respiratory exam: Present: normal lung sounds bilaterally. Absent: respiratory distress, wheezes, rales, rhonchi, stridor Cardiovascular Exam: Present: regular rate, normal rhythm, normal heart sounds. Absent: systolic murmur, diastolic murmur, rubs, gallop, clicks GI/Abdominal exam: Present: other ( Normal bowel sounds. Soft on palpation. Patient does have tenderness left lower and left flank.) Extremities exam: Present: normal inspection, full ROM, normal capillary refill. Absent: tenderness, pedal edema, joint swelling, calf tenderness Course Vital Signs 07/20/17 07/20/17 13:13 14:40 Temperature 99.0 F Pulse Rate 61 77 Respiratory 18 15 Rate Blood Pressure 137/87 146/76 O2 Sat by Pulse 100 97 Oximetry Medical Decision Making - Medical Decision Making Case discussed in detail with attending physician Dr. Cates. Patient reexamined at this time shows no signs of distress resting comfortably. Abdomen soft nontender at this time. Patient's labs reviewed from [facility] white count. Did have nausea vomiting here in the emergency room on presentation. Does have multiple episodes morning. Patient's urinalysis reviewed shows large blood with 34 white cells. Given dose of Rocephin here in emergency room. Patient states he does have Bactrim at home that he can take for possible UTI. He states he was given this recently by the family doctor. Patient updated on the results told of a 4 mm stone on the distal left ureter causing mild hydronephrosis. Also a 3 mm stone in the proximal left ureter with no significant hydronephrosis. At this time patient feels comfortable being discharged home. No fever here. Advised close follow-up with the urologist Saturday morning. Advised to return here to the emergency room if there is any fever or increase worsen symptoms or any other concerns. Patient states understanding and is in agreement. - Lab Data Result diagrams: 07/20/17 13:42 07/20/17 13:42 Lab Results 07/20/17 07/20/17 07/20/17 Range/Units 13:42 13:42 13:42 WBC 20.5 H (3.8-10.6) k/uL RBC 4.72 (4.30-5.90) m/uL Hgb 14.1 (13.0-17.5) gm/dL Hct 44.8 (39.0-53.0) % MCV 94.9 (80.0-100.0) fL MCH 29.9 (25.0-35.0) pg MCHC 31.5 (31.0-37.0) g/dL RDW 13.5 (11.5-15.5) % Plt Count 229 (150-450) k/uL Neutrophils % 70 % Lymphocytes % 20 % Monocytes % 6 % Eosinophils % 2 % Basophils % 1 % Neutrophils # 14.5 H (1.3-7.7) k/uL Lymphocytes # 4.2 (1.0-4.8) k/uL Monocytes # 1.1 H (0-1.0) k/uL Eosinophils # 0.3 (0-0.7) k/uL Basophils # 0.2 (0-0.2) k/uL Sodium 142 (137-145) mmol/L Potassium 4.3 (3.5-5.1) mmol/L Chloride 107 (98-107) mmol/L Carbon Dioxide 21 L (22-30) mmol/L Anion Gap 14 mmol/L BUN 12 (9-20) mg/dL Creatinine 1.10 (0.66-1.25) mg/dL Est GFR (MDRD) Af Amer >60 (>60 ml/min/1.73 sqM) Est GFR (MDRD) Non-Af >60 (>60 ml/min/1.73 sqM) Glucose 109 H (74-99) mg/dL Calcium 9.9 (8.4-10.2) mg/dL Total Bilirubin 0.6 (0.2-1.3) mg/dL AST 29 (17-59) U/L ALT 23 (21-72) U/L Alkaline Phosphatase 84 (38-126) U/L Total Protein 7.4 (6.3-8.2) g/dL Albumin 4.6 (3.5-5.0) g/dL Amylase 71 (30-110) U/L Lipase 59 (23-300) U/L Urine Color Dark Brown Urine Appearance Clear (Clear) Urine pH 6.0 (5.0-8.0) Ur Specific [place] 1.017 (1.001-1.035) Urine Protein Trace H (Negative) Urine Glucose (UA) Negative (Negative) Urine Ketones Negative (Negative) Urine Blood Large H (Negative) Urine Nitrite Positive (Negative) Urine Bilirubin 2+ H (Negative) Urine Urobilinogen 6.0 (<2.0) mg/dL Ur Leukocyte Esterase Negative (Negative) Urine RBC >182 H (0-5) /hpf Urine WBC 34 H (0-5) /hpf Urine Mucus Occasional H (None) /hpf Disposition Clinical Impression: Kidney stone Disposition: HOME SELF-CARE Condition: Good Instructions: Kidney Stones (ED) Additional Instructions: Please use medications as discussed. Please follow-up with the urologist Saturday morning. Please return here to the emergency room if there is any fever , increase or worsening symptoms or any other concerns. Referrals: Teddy Rodriguez MD [Primary Care Provider] - 1-2 days Sebastian Gardner MD [STAFF PHYSICIAN] - 1-2 days Time of Disposition: 15:56
[2017-07-20 14:10] LABS: ALT 23 U/L (21-72); AST 29 U/L (17-59); Albumin 4.6 g/dL (3.5-5.0); Alkaline Phosphatase 84 U/L (38-126); Amylase 71 U/L (30-110); Anion Gap 14 mmol/L; Blood Urea Nitrogen 12 mg/dL (9-20); Calcium 9.9 mg/dL (8.4-10.2); Carbon Dioxide 21 mmol/L (22-30); Chloride 107 mmol/L (98-107); Glucose 109 mg/dL (74-99); Lipase 59 U/L (23-300); Potassium 4.3 mmol/L (3.5-5.1); Sodium 142 mmol/L (137-145); Total Bilirubin 0.6 mg/dL (0.2-1.3); Total Protein 7.4 g/dL (6.3-8.2)
[2017-07-20] MEDS ORDERED: KETOROLAC 30 MG/ML 1 ML VIAL IVP STA (14:34)
--- NOTE | 2017-07-20 14:43 | XR ---
EXAMINATION TYPE: XR KUB DATE OF EXAM: 07/20/2017 2:20 PM CLINICAL HISTORY: Left flank pain and vomiting. TECHNIQUE: Single supine KUB image of the abdomen is obtained. COMPARISON: CT abdomen and pelvis May 11, 2017. FINDINGS: There are 3 left-sided calculi measuring 4 mm or smaller on CT not clearly seen on plain fi lms. There are 5-7 small calculi scattered throughout right kidney on CT not clearly seen on plain fi lms. Based on patient's history it is suspected passage of left-sided calculus in the ureter. There is overall nonobstructive bowel gas pattern. Lung bases are clear. Visualized osseous structure s are intact. IMPRESSION: Overall nonobstructive bowel gas pattern. Bilateral nephrolithiasis seen better on CT with likely pas yury of small left-sided calculus into ureter based on patient's symptoms.
[2017-07-20 15:41] VITALS: RESP 15
--- NOTE | 2017-07-20 15:44 | CT ---
EXAMINATION TYPE: CT abdomen pelvis wo con DATE OF EXAM: 07/20/2017 HISTORY: Lt flank pain, history of lithotripsy for Rt sided stone last week. History of bilateral lauri al calculi. CT DLP: 243.3 mGycm. Automated Exposure Control for Dose Reduction was Utilized. TECHNIQUE: CT scan of the abdomen and pelvis is performed without oral or IV contrast. COMPARISON: CT abdomen pelvis May 11, 2017. FINDINGS: Within the limitations of a non-contrast study, the following observations are made. LUNG BASES: No significant abnormality is appreciated. LIVER/GB: No significant abnormality is appreciated. PANCREAS: No significant abnormality is seen. SPLEEN: No significant abnormality is seen. ADRENALS: No significant abnormality is seen. KIDNEYS: On current study there are only 2-3 right-sided renal calculi measuring 2 mm or smaller. The re is passage of 3 mm calculus in the proximal right ureter on axial image 70. No right-sided hydrone phrosis is seen. On current study there are 2-3 calculi lower pole level left kidney redemonstrated measuring up to 4 mm in size. There is new mild left-sided pyelocaliectasis and hydroureter up to level of obstructing 4 mm calculus distal left ureter axial image 116. Left-sided pelvic phleboliths inferior to this are redemonstrated. BOWEL: No significant abnormality is seen. GENITAL ORGANS: No gross abnormality seen. LYMPH NODES: No greater than 1cm abdominal or pelvic lymph nodes are appreciated. OSSEOUS STRUCTURES: No significant abnormality is seen. OTHER: No significant additional abnormality is seen. IMPRESSION: 1. Redemonstration of bilateral nephrolithiasis. Interval passage of 4 mm calculus into distal left ureter causing mild left-sided hydronephrosis. Interval passage of 3 mm calculus into proximal right ureter not causing significant right-sided hydronephrosis.
[2017-07-20] MEDS ORDERED: cefTRIAXone IN SWFI 1,000 MG/10 ML SYRINGE IVP STA (15:47)
[2017-07-20 16:27] VITALS: BP 139/57; PULSE 82; TEMP 98.2
== END 2017-07-20 16:20 | disposition home or self-care (01) ==
LOC: EC 13:11
DX: N13.2 Hydronephrosis with renal and ureteral calculous obstruction (principal); Z87.442 Personal history of urinary calculi; F17.200 Nicotine dependence, unspecified, uncomplicated; Z91.048 Other nonmedicinal substance allergy status; Z91.018 Allergy to other foods
CPT/HCPCS: 36415; 80053; 82150; 83690; 85025; 81001; 74018; 74176; 99284; 96374; 96375 ×3; 96361; J1170; J2405; J0696; J1885

== ENCOUNTER 2018-02-14 00:36 | Inpatient (IN) | payer MEDICAID, OTHER ==
[2018-02-14] MEDS ORDERED: DIPH,PERTUS(ACELL)TETVAC-LF 0.5 ML VIAL IM ONE (01:00)
[2018-02-14 01:47] LABS: Amphetamine Screen,Urine Not Detected (NotDetected); Barbiturate Screen,Urine Not Detected (NotDetected); Benzodiazepines Screen,Urine Not Detected (NotDetected); Cocaine Screen,Urine Not Detected (NotDetected); Methadone Screen, Urine Not Detected (NotDetected); Opiate Screen,Urine Not Detected (NotDetected); Oxycodone Screen, Urine Not Detected (NotDetected); Phencyclidine Screen,Urine Not Detected (NotDetected); Tricyclic Antidepressant,Urine Not Detected (NotDetected); Urn Cannabinoid Scrn Detected (NotDetected)
[2018-02-14] MEDS ORDERED: TOPICAL SKIN ADHESIVE 1 EACH AMP TOPICAL ONE (04:21)
[2018-02-14] MEDS ORDERED: ZIPRASIDONE 20 MG VIAL IM STA (04:56)
[2018-02-14] MEDS ORDERED: LORazepam 2 MG/ML INJ IM STA (04:56)
--- NOTE | 2018-02-14 04:56 | ED ---
General Adult HPI - General Chief complaint: Psychiatric Symptoms Stated complaint: arm lac-petition Time Seen by Provider: 02/14/18 00:59 Source: patient Mode of arrival: ambulatory Limitations: no limitations - History of Present Illness Initial comments: 27-year-old male with a history of depression, currently not taking any medications presents the ED today for evaluation of multiple superficial lacerations to his left arm. Patient reports that he was cutting himself to distract himself from his mental anguish. She reports that he has a history of depression, he has been seen by psychiatrist in the past, he has been prescribed psychiatric medications but states that he doesn't like how they make him feel. - Related Data Home Medications Medication Instructions Recorded Confirmed No Known Home Medications 02/14/18 02/14/18 Allergies Allergy/AdvReac Type Severity Reaction Status Date / Time poison deanna extract Allergy Severe Rash/Hives Verified 02/14/18 03:00 strawberry Allergy Rash/Hives Verified 02/14/18 03:00 Review of Systems ROS Statement: Those systems with pertinent positive or pertinent negative responses have been documented in the HPI. ROS Other: All systems not noted in ROS Statement are negative. 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 no family history Past Psychological History: Anxiety, Depression Smoking Status: Current every day smoker Past Alcohol Use History: Occasional Past Drug Use History: Marijuana - Past Family History family Family Medical History: Unable to Obtain Additional Family Medical History / Comment(s): no family hx General Exam - General Exam Comments Initial Comments: GENERAL: Patient is well-developed and well-nourished. Patient is nontoxic and well- hydrated and is in mild distress. HENT: Normocephalic, Atraumatic. Neck is soft and supple. No significant lymphadenopathy is noted. Oropharynx is clear. Moist mucous membranes. Neck has full range of motion without eliciting any pain. EYES: The sclera were anicteric and conjunctiva were pink and moist. Extraocular movements were intact and pupils were equal round and reactive to light. Eyelids were unremarkable. PULMONARY: Unlabored respirations. Good breath sounds bilaterally. No audible rales rhonchi or wheezing was noted. CARDIOVASCULAR: There is a regular rate and rhythm without any murmurs gallops or rubs. ABDOMEN: Soft and nontender with normal bowel sounds. SKIN: There are multiple superficial linear lacerations on the left forearm, the most proximal measures approximate 4 cm and does have some mild bleeding. Others are superficial with no active bleeding. NEUROLOGIC: Patient is alert and oriented x3. Cranial nerves II through XII are grossly intact. Motor and sensory are also intact. Normal speech, volume and content. Symmetrical smile. MUSCULOSKELETAL: Normal extremities with adequate strength and full range of motion. No lower extremity swelling or edema. No calf tenderness. Straight leg test is negative bilaterally. Perineum has normal sensation LYMPHATICS: No significant lymphadenopathy is noted PSYCHIATRIC: Patient agitated, depressed, suicidal, somewhat paranoid with paranoid delusions Limitations: no limitations Course Vital Signs 02/14/18 02/14/18 00:41 05:37 Temperature 98.7 F 97.3 F L Pulse Rate 92 74 Respiratory 18 16 Rate Blood Pressure 141/74 109/52 O2 Sat by Pulse 100 97 Oximetry Procedures - Laceration Laceration #1 Consent Obtained: verbal consent Indication: laceration Site: upper extremity Size (cm): 4 Description: linear Depth: simple, single layer Pre-repair: wound explored Size of Sutures: other (skin glue) Patient Tolerated Procedure: well Medical Decision Making - Medical Decision Making Patient was seen and evaluated, patient appears depressed and suicidal, and addition he has some paranoia and delusions specifically regarding government control and what he continues to talk about the pharmacy and being mind controlled by medications Wounds were cleansed, had multiple superficial lacerations to the left forearm, the most proximal laceration was through the dermis and had some mild bleeding. I repaired this with skin glue. Patient tolerated that well. Patient declined tetanus vaccination Patient is medically cleared for evaluation by EPS Patient was evaluated by psychiatric nurse who agrees patient requires inpatient admission. Patient refused to sign himself in. Patient was petitioned inserted. Patient then began making threats stating that he was given a destroy this place. Decision was made to treat the patient's anxiety and agitation with IM Ativan and Geodon. Patient initially resistant but did agree to these medications. They were administered and the patient did subsequently calm down. Patient was transferred to the psychiatric floor. - Lab Data Lab Results 02/14/18 Range/Units 00:50 Urine Opiates Screen Not Detected (NotDetected) Ur Oxycodone Screen Not Detected (NotDetected) Urine Methadone Screen Not Detected (NotDetected) Ur Propoxyphene Screen Not Detected (NotDetected) Ur Barbiturates Screen Not Detected (NotDetected) U Tricyclic Antidepress Not Detected (NotDetected) Ur Phencyclidine Scrn Not Detected (NotDetected) Ur Amphetamines Screen Not Detected (NotDetected) U Methamphetamines Scrn Not Detected (NotDetected) U Benzodiazepines Scrn Not Detected (NotDetected) Urine Cocaine Screen Not Detected (NotDetected) U Marijuana (THC) Screen Detected H (NotDetected) Disposition Clinical Impression: Psychosis Disposition: TRANSFER TO PSYCH HOSP/UNIT Is patient prescribed a controlled substance at d/c from ED?: No
[2018-02-14] MEDS ORDERED: ZIPRASIDONE 20 MG VIAL IM PRN (05:22)
[2018-02-14] MEDS ORDERED: LORazepam 1 MG TAB PO PRN (05:22)
[2018-02-14] MEDS ORDERED: MAGNESIUM HYDROXIDE 2,400 MG/10 ML CUP PO PRN (05:22)
[2018-02-14] MEDS: NICOTINE 14MG/24HR PATCH TRANSDERM SCH (09:15)
[2018-02-14 11:21] LABS: Basophils # (A) 0.1 k/uL (0-0.2); Basophils % (A) 1 %; Eosinophils # (A) 0.4 k/uL (0-0.7); Eosinophils % (A) 4 %; HCT 43.1 % (39.0-53.0); HGB 13.7 gm/dL (13.0-17.5); Lymphocytes # (A) 2.4 k/uL (1.0-4.8); Lymphocytes % (A) 23 %; MCH 29.5 pg (25.0-35.0); MCHC 31.8 g/dL (31.0-37.0); Mean Platelet Volume 7.8; Monocytes # (A) 0.6 k/uL (0-1.0); Monocytes % (A) 6 %; Neutrophils # (A) 6.6 k/uL (1.3-7.7); Neutrophils % (A) 65 %; Platelet Count 179 k/uL (150-450); RBC 4.64 m/uL (4.30-5.90); RDW 12.4 % (11.5-15.5); WBC 10.2 k/uL (3.8-10.6)
[2018-02-14 11:48] LABS: ALT 28 U/L (21-72); AST 26 U/L (17-59); Albumin 4.1 g/dL (3.5-5.0); Alkaline Phosphatase 68 U/L (38-126); Anion Gap 6 mmol/L; Blood Urea Nitrogen 11 mg/dL (9-20); Calcium 9.5 mg/dL (8.4-10.2); Carbon Dioxide 27 mmol/L (22-30); Chloride 111 mmol/L (98-107); Cholesterol 109 mg/dL (<200); Glucose 83 mg/dL (74-99); HDL Cholesterol 45 mg/dL (40-60); LDL Cholesterol,Calculated 54 mg/dL (0-99); Potassium 4.5 mmol/L (3.5-5.1); Sodium 144 mmol/L (137-145); Total Bilirubin 0.7 mg/dL (0.2-1.3); Total Protein 6.7 g/dL (6.3-8.2); Triglycerides 51 mg/dL (<150)
--- NOTE | 2018-02-14 14:52 | P.MDCNMH ---
History of Present Illness H&P Date: 02/14/18 Chief Complaint: Depression with suicide attempt 27-year-old male with a history of depression, currently not taking any medications presents the ED today for evaluation of multiple superficial lacerations to his left arm. He reported to me that he has been depressed all of his life and that life is not fair. He also stated that that he was cutting himself to distract himself from his mental anguish. He has history of depression and has been seen by psychiatrist in the past, he has been prescribed psychiatric medications but states that he doesn't like how they make him feel so he is not taking any medicine for now. When I tried to evaluate him RNs reported that he was angry and just refused to be evaluated by the psychiatrist. He was answering my questions with brief answers so history was not completed properly. He denied being sick with any physical illness, including nausea, vomiting, fevers or chills, chest pain or shortness of breath , abdominal pain, diarrhea or urinary symptoms. Review of Systems 12 point review of System Performed, Negative except HPI Past Medical History Past Medical History: Osteoarthritis (OA) Additional Past Medical History / Comment(s): kidney stones, migraines, " neck", insomnia, arthritis in rt hand from previous fx, History of Any Multi-Drug Resistant Organisms: None Reported Past Surgical History: No Surgical Hx Reported Past Anesthesia/Blood Transfusion Reactions: No Reported Reaction Additional Past Anesthesia/Blood Transfusion Reaction / Comment(s): miltary neck - states he can move neck forward and back with no difficulty. no family history Past Psychological History: Anxiety, Depression Smoking Status: Current every day smoker Past Alcohol Use History: Occasional Past Drug Use History: Marijuana - Past Family History family Family Medical History: Unable to Obtain Additional Family Medical History / Comment(s): no family hx Medications and Allergies Home Medications Medication Instructions Recorded Confirmed Type No Known Home Medications 02/14/18 02/14/18 History Allergies Allergy/AdvReac Type Severity Reaction Status Date / Time poison deanna extract Allergy Severe Rash/Hives Verified 02/14/18 03:00 strawberry Allergy Rash/Hives Verified 02/14/18 03:00 Physical Exam Vitals: Vital Signs Temp Pulse Pulse Resp BP BP Pulse Ox 02/14/18 06:26 98.2 F 68 15 154/64 02/14/18 05:37 97.3 F L 74 16 109/52 97 02/14/18 00:41 98.7 F 92 18 141/74 100 Intake and Output 02/13/18 02/14/18 02/14/18 22:59 06:59 14:59 Other: Weight 65.771 kg Constitutional: No acute distress, conversant, pleasant Eyes:Anicteric sclerae, moist conjunctiva, no lid-lag, PERRLA, ENMT: Oropharynx clear, no erythema, exudates Neck: Supple, FROM, no masses, or JVD, No carotid bruits, No thyromegaly Lungs: Clear to auscultation, Clear to percussion, Normal respiratory effort, no accessory muscle use Cardiovascular: Heart regular in rate and rhythm, No murmurs, gallops, or rubs, No peripheral edema Abdominal: Soft, Nontender, no guarding, rebound or rigidity, Normoactive bowel sounds, No hepatomegaly, No splenomegaly, No palpable mass Skin: Multiple lacerations on the left arm below the elbow and about the wrist. The area seems to be warm, the skin is erythematous around the wound. No purulent discharge. No induration, No subcutaneous nodules, No rash. Extremities: No digital cyanosis, No clubbing, Pedal pulses intact and symmetrical, Radial pulses intact and symmetrical, No calf tenderness Psychiatric: Alert and oriented to person, place and time, depressed mood, flat affect, impaired judgement Neuro: Muscles Strength 5/5 in all 4 extremities, Sensation to light touch grossly present throughout, Cranial nerves II-XII grossly intact, no focal sensory deficits Cranial Nerve Examination - Cranial Nerves Cranial Nerve II- Optic: Intact Cranial Nerve III- Oculomotor: Intact Cranial Nerve IV- Trochlear: Intact Cranial Nerve V- Trigeminal: Intact Cranial Nerve - Abducens: Intact Cranial Nerve VII- Facial: Intact Cranial Nerve VIII- Auditory: Intact Cranial Nerve IX- Glossopharyngeal: Intact Cranial Nerve X- Vagus: Intact Cranial Nerve XI- Accessory: Intact Cranial Nerve XII- Hypoglossal: Intact Results CBC & Chem 7: 02/14/18 10:55 02/14/18 10:55 Labs: Abnormal Lab Results - Last 24 Hours (Table) 02/14/18 02/14/18 Range/Units 00:50 10:55 Chloride 111 H (98-107) mmol/L U Marijuana (THC) Screen Detected H (NotDetected) Assessment and Plan Plan: Major depression with suicidal attempt: Management per psychiatry Multiple lacerations/wound in the left arm Bacitracin and Keflex to treat/prevent infection Health maintenance CBC, CMP, TSH, lipid profile checked, within normal limits Marijuana abuse Concessionist to quit
--- NOTE | 2018-02-14 15:32 | P.HP ---
Psychiatric H&P - . H&P Date: 02/14/18 History & Physical: Allergies Allergy/AdvReac Type Severity Reaction Status Date / Time poison deanna extract Allergy Severe Rash/Hives Verified 02/14/18 03:00 strawberry Allergy Rash/Hives Verified 02/14/18 03:00 Vital Signs Temp 98.2 F 02/14/18 06:26 Pulse 68 02/14/18 06:26 Resp 15 02/14/18 06:26 BP 154/64 02/14/18 06:26 Pulse Ox 97 02/14/18 05:37 Intake & Output 02/13/18 02/14/18 02/14/18 18:59 06:59 18:59 Weight 65.771 kg Laboratory Last Values WBC 10.2 k/uL (3.8-10.6) 02/14/18 10:55 RBC 4.64 m/uL (4.30-5.90) 02/14/18 10:55 Hgb 13.7 gm/dL (13.0-17.5) 02/14/18 10:55 Hct 43.1 % (39.0-53.0) 02/14/18 10:55 MCV 93.0 fL (80.0-100.0) 02/14/18 10:55 MCH 29.5 pg (25.0-35.0) 02/14/18 10:55 MCHC 31.8 g/dL (31.0-37.0) 02/14/18 10:55 RDW 12.4 % (11.5-15.5) 02/14/18 10:55 Plt Count 179 k/uL (150-450) 02/14/18 10:55 Neutrophils % 65 % 02/14/18 10:55 Lymphocytes % 23 % 02/14/18 10:55 Monocytes % 6 % 02/14/18 10:55 Eosinophils % 4 % 02/14/18 10:55 Basophils % 1 % 02/14/18 10:55 Neutrophils # 6.6 k/uL (1.3-7.7) 02/14/18 10:55 Lymphocytes # 2.4 k/uL (1.0-4.8) 02/14/18 10:55 Monocytes # 0.6 k/uL (0-1.0) 02/14/18 10:55 Eosinophils # 0.4 k/uL (0-0.7) 02/14/18 10:55 Basophils # 0.1 k/uL (0-0.2) 02/14/18 10:55 Sodium 144 mmol/L (137-145) 02/14/18 10:55 Potassium 4.5 mmol/L (3.5-5.1) 02/14/18 10:55 Chloride 111 mmol/L (98-107) H 02/14/18 10:55 Carbon Dioxide 27 mmol/L (22-30) 02/14/18 10:55 Anion Gap 6 mmol/L 02/14/18 10:55 BUN 11 mg/dL (9-20) 02/14/18 10:55 Creatinine 0.80 mg/dL (0.66-1.25) 02/14/18 10:55 Est GFR (CKD-EPI)AfAm >90 (>60 ml/min/1.73 sqM) 02/14/18 10:55 Est GFR (CKD-EPI)NonAf >90 (>60 ml/min/1.73 sqM) 02/14/18 10:55 Glucose 83 mg/dL (74-99) 02/14/18 10:55 Calcium 9.5 mg/dL (8.4-10.2) 02/14/18 10:55 Total Bilirubin 0.7 mg/dL (0.2-1.3) 02/14/18 10:55 AST 26 U/L (17-59) 02/14/18 10:55 ALT 28 U/L (21-72) 02/14/18 10:55 Alkaline Phosphatase 68 U/L (38-126) 02/14/18 10:55 Total Protein 6.7 g/dL (6.3-8.2) 02/14/18 10:55 Albumin 4.1 g/dL (3.5-5.0) 02/14/18 10:55 Triglycerides 51 mg/dL (<150) 02/14/18 10:55 Cholesterol 109 mg/dL (<200) 02/14/18 10:55 LDL Cholesterol, Calc 54 mg/dL (0-99) 02/14/18 10:55 HDL Cholesterol 45 mg/dL (40-60) 02/14/18 10:55 TSH 1.730 mIU/L (0.465-4.680) 02/14/18 10:55 Urine Opiates Screen Not Detected (NotDetected) 02/14/18 00:50 Ur Oxycodone Screen Not Detected (NotDetected) 02/14/18 00:50 Urine Methadone Screen Not Detected (NotDetected) 02/14/18 00:50 Ur Propoxyphene Screen Not Detected (NotDetected) 02/14/18 00:50 Ur Barbiturates Screen Not Detected (NotDetected) 02/14/18 00:50 U Tricyclic Antidepress Not Detected (NotDetected) 02/14/18 00:50 Ur Phencyclidine Scrn Not Detected (NotDetected) 02/14/18 00:50 Ur Amphetamines Screen Not Detected (NotDetected) 02/14/18 00:50 U Methamphetamines Scrn Not Detected (NotDetected) 02/14/18 00:50 U Benzodiazepines Scrn Not Detected (NotDetected) 02/14/18 00:50 Urine Cocaine Screen Not Detected (NotDetected) 02/14/18 00:50 U Marijuana (THC) Screen Detected (NotDetected) H 02/14/18 00:50 02/14/18 15:25 Identification: Patient is a 27-year-old male who was brought in by the police after cutting his arm. History of Present Illness: Patient refused to speak with me, he was approached multiple times in his room and on the last occasion was approached with nursing staff. Patient continued to lie in his bed with the covers pulled up over his head and refused to speak stating at one point that it wouldn't do any good and at another point that he "wanted to talk to an securities attorney". Patient refused to get up and speak with me, I discussed with the patient that if he did not get up and speak with me I would be compelled to complete the second certification based on what was provided on the petition and first surgery as well as the record from the emergency room. He continued to refuse to respond to questions and so a second certification was completed. Reviewing the chart the patient was admitted here in May, at that time presenting with suicidal ideation which she then later denied as well as the girlfriend and 9. Patient was kept overnight started on Remeron and discharged to follow-up at an outpatient clinic. Patient is apparently not continued on Remeron per the record because he didn't like the way it made him feel. Past Psychiatric History: Unable to obtain Past Medical/Surgical History: Unable to obtain Family History: Unable to obtain Social History: Unable to obtain Substance Use History: Patient's UDS was positive for marijuana Legal History: Unable to obtain Mental status: Patient was lying in bed he had been approached on multiple occasions during the day, patient did respond to his name eventually rolling over but remained covered with the bed covers up over his head. Patient refused to get up out of bed and discuss anything, refused to respond to questions and stated that he didn't want to talk to anyone that it wouldn't do any good and then stated that he wanted to talk to an securities attorney. Intellectual Functioning: Unable to assess Strength/Weakness: Unable to assess Assessment: Patient was brought to the emergency room by police after getting into an argument with his girlfriend and having several cuts on his left arm that required repair to one of them. Patient while in the emergency room threatened to create havoc if he was admitted to the inpatient unit. Patient also made statements about wanting to destroy this place. Patient required IM Geodon and Ativan in the emergency room. Patient was admitted here in May with complaints of depression, a history of cutting himself and prior suicide attempts, was placed on Remeron and discharged with follow-up at a clinic. Patient currently is refusing to cooperate with an interview, refusing to sign himself in and so was admitted involuntarily. Patient's UDS was positive for marijuana Admission Diagnosis: Depressive disorder, rule out psychotic disorder Plan: Patient will be admitted on an involuntary basis, a second certificate was completed due to the patient's refusal to cooperate with an interview, making suicidal statements in the emergency room threatening to destroy displacing create havoc if he was admitted. Patient stated that he doesn't require treatment, has a history of being treated here before with complaints of depression as well as suicidal ideation. Patient will be admitted and placed on routine precautions, group and activity therapy were ordered. Routine laboratory studies were ordered and the patient was seen by the biomedical repair technician. We will attempt to interview the patient tomorrow, discussed treatment options with the patient, patient requires hospitalization. 02/14/18 15:28
[2018-02-14] MEDS: BACITRACIN OINT 1 EACH PACKET TOPICAL SCH ×2 (16:06→20:02)
[2018-02-14] MEDS: CEPHALEXIN 500 MG CAP PO SCH ×2 (17:59→20:02)
[2018-02-14 18:10] LABS: Hemoglobin A1C 5.2 % (4.0-6.0)
[2018-02-15] MEDS: ACETAMINOPHEN TAB 325 MG TAB PO PRN ×2 (08:55→13:34)
[2018-02-15] MEDS: NICOTINE 14MG/24HR PATCH TRANSDERM SCH (08:55)
[2018-02-15] MEDS: BACITRACIN OINT 1 EACH PACKET TOPICAL SCH ×4 (08:55→21:16)
[2018-02-15] MEDS: CEPHALEXIN 500 MG CAP PO SCH ×4 (08:55→21:11)
--- NOTE | 2018-02-15 10:15 | P.PN ---
Progress Note - Text Progress Note Date: 02/15/18 Interval History: Patient is a 27-year-old male who was seen today and didn't come to the interview room and was cooperative. Patient states he was brought here by the police after his father called him because he had an episode of anger where he was cutting himself to avoid mental pain and anguish. He states that he constantly feels hopeless and worthless, wants to has thoughts of suicide and has made plans but states that he doesn't really want to complete suicide. He states that he's been depressed since the age of 12 and has tried 7 times in the past as a child trying to hang himself but always stopped himself because he didn't want to do that to his parents and stated that no one knew he was doing that and so was never treated. Patient states that he was constantly bullied at school because of his physical stature as well as the fact that he was a nerd who played video games and he never fought back. He was seen in counseling at multiple different clinics before cause of this but was never treated with any medication. Patient continues to report being bullied by other adult states that he gets into arguments with people most of the time and feels worthless hopeless and states that he has little pleasure in life. He states that he has few friends and socially isolative and that his world revolves around his . Patient states that he is always negative and always angry complains all the time getting into verbal arguments using profanity. Patient complains that the man who rents a warehouse behind him is always having propane leaks, car exhaust and generator fumes to bother the patient. Patient states he was placed on Adderall as a child for 3 years but stopped it because it really wasn't the issue. Patient was admitted here in May 2017 and placed on Remeron he states that he did not follow up after discharge or continue taking the medication. Patient reports no other psychiatric treatment. Patient states that he began using marijuana at the age of 18 on a daily basis and now has a medical card for and has used since the age 21. He states between the ages of [age] he was using any drug he could get his hands on such as methamphetamine heroin crack another's no IV use. States that he was also drinking heavily at that time until he passed out. Patient denies any current use of any drugs other than marijuana and no alcohol use currently. Patient is adopted states his relationship with his adoptive parents is good. 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 He was in May 2017 they've been together for 2 years and have no children. Patient states that they have financial difficulties. Patient was charged with criminal sexual conduct at the age of 19 and served 2-1/2 years in snf and is a registered sex offender. He was also charged with full and is assaulted the age of 16 and possession of marijuana. Patient does not endorse any psychotic symptoms, nor manic symptoms and no complaints of anxiety symptoms. Patient states that he is currently feeling hopeless, helpless and worthless and states that he is not currently having any suicidal ideation and no thoughts to cut himself. Patient states that he has no sleep or appetite disturbance and did get up this morning to eat. Patient states that he is always angry getting into arguments with people and states that he is thoughts are always negative and he is always complaining. He reports that he has few friends continues to play video games but not for long because he gets bored easily. Mental Status: Appearance/Attitude: Patient is casually dressed, makes eye contact and is cooperative Behavior: Patient does not exhibit any psychomotor agitation or retardation. Speech/Language: Speech is spontaneous of normal volume and rhythm and he is coherent. Thought Process: Patient is goal-directed there is no evidence of loose association or flight of ideas Thought Content: Patient denies any auditory or visual hallucinations and no delusions or paranoid ideation or elicited. Patient reports feeling hopeless, helpless and worthless. He states that he always has negative thoughts and is always complaining and getting into verbal arguments with people. Patient states he socially isolative and always feels that people are bullying him. Patient reports no sleep or appetite disturbance. Suicidal/Homicidal Ideation: Patient denies any current suicidal or homicidal ideation and states he has no thoughts to hurt himself or cut himself Sensorium/Cognition: Patient is alert and oriented to person, place, and time and his recent and remote memory are grossly intact. Mood/Affect: Patient's mood is depressed and his affect is appropriate to his mood Insight/Judgment: Patient's insight and judgment are fair Assessment: Patient and I discussed his admission the fact that he would not speak with me yesterday refused to talk with me and I reviewed again with the patient the involuntary process. Patient reports a history of depressive symptoms since the age of 9 with multiple prior suicide attempts and suicidal plans however he states that he doesn't want to act on them because he doesn't want to hurt his adoptive parents. Patient reports feeling hopeless, helpless and worthless stating that he is always getting into arguments with people and his thoughts are mostly negative. Patient reports a history of being bullied as a child, continues to feel that people bully him. Plan: Patient and I discussed the treatment of depression, and I suggested that we begin an antidepressant I reviewed the antidepressants there use and side effects and we will begin Prozac 10 mg in the morning. Patient was encouraged to attend groups and activities. I reviewed the involuntary process again with the patient. Patient was agreeable to the plan and continues to require hospitalization to stabilize his mood.
[2018-02-15] MEDS: FLUoxetine HCL 10 MG CAP PO SCH (10:23)
[2018-02-15] MEDS ORDERED: diphenhydrAMINE 50 MG CAP PO STA (22:50)
[2018-02-16] MEDS: NICOTINE 14MG/24HR PATCH TRANSDERM SCH (08:53)
[2018-02-16] MEDS: BACITRACIN OINT 1 EACH PACKET TOPICAL SCH ×3 (08:54→20:09)
[2018-02-16] MEDS: CEPHALEXIN 500 MG CAP PO SCH ×4 (08:54→20:09)
[2018-02-16] MEDS: FLUoxetine HCL 10 MG CAP PO SCH (08:54)
[2018-02-16] MEDS: NICOTINE 21MG/24HR PATCH TRANSDERM SCH ×2 (09:51→16:20)
[2018-02-16] MEDS: ACETAMINOPHEN TAB 325 MG TAB PO PRN ×2 (09:52→16:22)
--- NOTE | 2018-02-16 10:26 | P.PN ---
Progress Note - Text Progress Note Date: 02/16/18 Interval History: Patient is a 27-year-old male who was seen today who reports that he had difficulty sleeping last night because another patient was screaming. He states that once he awakens in the middle the night he has difficulty falling asleep. Patient states that his appetite is been good and he has not been feeling as angry. He states that he speaking with his as frequently as he can and is somewhat stressed about their financial situation. He reports he is not feeling as angry and states that he is not feeling as depressed. Mental Status: Appearance/Attitude: Patient is casually dressed, makes good eye contact and was cooperative. Behavior: Patient does not display any psychomotor agitation or retardation. Speech/Language: Patient's speech is spontaneous and of normal volume and rhythm Thought Process: Patient is goal-directed there is no evidence of loose association or flight of ideas Thought Content: And denies any auditory or visual hallucinations and no delusions or paranoid ideation are elicited. Patient states that he got upset last night and was yelling because another patient started screaming in the middle of the night. He states that he's had no other outbursts but has not been attending any groups or activities. Patient states that he is not feeling as angry or as irritable. He reports that he is eating well. Suicidal/Homicidal Ideation: Patient denies any current suicidal or homicidal ideation Sensorium/Cognition: And is alert and oriented to person, place, and time and his recent and remote memory are grossly intact Mood/Affect: Patient's mood is pleasant and his affect is appropriate Insight/Judgment: His insight and judgment are fair Assessment: Patient states that he was upset last evening the patient began screaming in the middle of the night he had difficulty falling back to sleep but did so after taking Benadryl. Patient states that he is not attending groups or activities as he does not find them helpful. Patient states that he' s had no other angry outbursts on the unit and has been speaking with his as frequently as possible on the phone. Patient denies feeling helpless or hopeless. Plan: Patient will continue on Prozac 10 mg to target his depression and anger, patient was encouraged to attend groups or activities. Patient continues to require hospitalization to further stabilize his mood.
[2018-02-16] MEDS: MAG HYDROX/AL HYDROX/SIMETH 30 ML CUP PO PRN (13:36)
[2018-02-16 14:01] LABS: Appearance,Urine Clear (Clear); Bilirubin,Urine Negative (Negative); Blood,Urine Negative (Negative); Color,Urine Yellow; Glucose,Urine (UA) Negative (Negative); Ketones,Urine Negative (Negative); Leukocyte Esterase,Urine Negative (Negative); Nitrite,Urine Negative (Negative); PH, Urine 6.5 (5.0-8.0); Protein,Urine Negative (Negative); Specific Gravity,Urine 1.014 (1.001-1.035); Urobilinogen,Urine <2.0 mg/dL (<2.0)
[2018-02-17] MEDS: CEPHALEXIN 500 MG CAP PO SCH ×4 (09:07→20:19)
[2018-02-17] MEDS: ACETAMINOPHEN TAB 325 MG TAB PO PRN ×2 (09:07→20:20)
[2018-02-17] MEDS: NICOTINE 21MG/24HR PATCH TRANSDERM SCH (09:07)
[2018-02-17] MEDS: BACITRACIN OINT 1 EACH PACKET TOPICAL SCH ×4 (09:07→21:14)
[2018-02-17] MEDS: FLUoxetine HCL 10 MG CAP PO SCH (09:07)
--- NOTE | 2018-02-17 12:08 | P.PN ---
Progress Note - Text Progress Note Date: 02/17/18 Interval History: Patient is a 27-year-old male who was seen today and he states that he is stressed out because his is sick at home and she is unable to drive as well as he is losing out on money and they need to pay their rent by this Saturday. He continues to not attend groups or activities. He states that he is not sleeping well because the bed is not comfortable. He denies any suicidal thoughts and states he is not feeling hopeless, helpless as he was on the day of admission. Mental Status: Appearance/Attitude: Patient is casually dressed, makes good eye contact and was cooperative. Behavior: Patient does not exhibit any psychomotor agitation or retardation. Speech/Language: Patient's speech is spontaneous of normal volume and rhythm and he is coherent Thought Process: Patient is goal-directed there is evidence of loose association or flight of ideas Thought Content: Patient denies any auditory or visual hallucinations and no delusions or paranoid ideation or elicited. Patient states that he is stressed out because his is sick at home and she can't drive due to anxiety. He states that he is also losing money and their rent is due this Saturday. Patient states he hasn't been sleeping well here because the bed is uncomfortable. Patient states his appetite is good. He continues to not up attend groups or activities Suicidal/Homicidal Ideation: Patient denies any current suicidal or homicidal ideation Sensorium/Cognition: Patient is alert and oriented to person, place, and time and his recent and remote memory are grossly intact Mood/Affect: Patient's mood is pleasant and his affect is appropriate Insight/Judgment: Patient's insight and judgment are fair Assessment: Patient states that he is stressed out because his is ill at home and she can't drive, their rent is due Saturday and he hasn't been working. Patient denies that he is feeling hopeless or worthless as he was on admission and states he was angry on admission because he wasn't told that he would be admitted. Patient states that he is not having any suicidal thoughts. Patient is not attending groups or activities because he doesn't think there will be any benefit. Plan: Patient continues on Prozac 10 mg in the morning his deferral meeting as this Saturday. Patient continues to be encouraged to attend groups and activities. Should patient defer on Saturday he will be discharged at that time and is agreeable to follow-up care.
[2018-02-17] MEDS: MAG HYDROX/AL HYDROX/SIMETH 30 ML CUP PO PRN (13:29)
[2018-02-18 06:04] VITALS: RESP 18
[2018-02-18] MEDS: FLUoxetine HCL 10 MG CAP PO SCH (08:54)
[2018-02-18] MEDS: NICOTINE 21MG/24HR PATCH TRANSDERM SCH (08:54)
[2018-02-18] MEDS: BACITRACIN OINT 1 EACH PACKET TOPICAL SCH ×3 (08:54→20:20)
[2018-02-18] MEDS: CEPHALEXIN 500 MG CAP PO SCH ×3 (08:54→20:20)
--- NOTE | 2018-02-18 13:45 | P.PN ---
Progress Note - Text Progress Note Date: 02/18/18 Interval History: Patient is a 27-year-old male who was seen today and he reports that he slept fairly well last night, no longer is feeling suicidal, states that his is doing better. States that he is eager to leave the hospital and return home. Mental Status: Appearance/Attitude: Patient is casually dressed, makes good eye contact and was cooperative. Behavior: Patient did not display any psychomotor agitation or retardation. Speech/Language: patient's speech was spontaneous of normal volume and rhythm and he is coherent. Thought Process: patient was goal-directed there was no evidence of loose association or flight of ideas Thought Content: patient denied any auditory or visual hallucinations and no delusions or paranoid ideation were elicited. Patient stated that he is not feeling depressed, he states that he had some odd dreams last night and did not sleep that well but states that partly it is due to being uncomfortable in the bed. Patient states that he has been eating well. He reports that he is not feeling as angry as he was on admission Suicidal/Homicidal Ideation: patient denies any current suicidal or homicidal ideation Sensorium/Cognition: patient is alert and oriented to person, place, and time and his recent and remote memory are grossly intact Mood/Affect: patient's mood is pleasant and his affect is appropriate Insight/Judgment: patient's insight and judgment are fair Assessment: patient states that he is eager to return home, has not felt as irritable or angry as he was on admission. Patient states he is not feeling depressed and no suicidal ideation. Patient states that he plans to defer his deferral is tomorrow at 9 AM. Patient states that he is not having any side effects from the Prozac, has not been attending any groups or activities. Patient slept about 5 hours last night. Plan: Patient will continue on Prozac 10 mg in the morning, his deferral meeting is tomorrow and to the patient deferred he can be discharged. Patient was agreeable to referrals for outpatient counseling after discharge.
[2018-02-18] MEDS: ACETAMINOPHEN TAB 325 MG TAB PO PRN (20:23)
[2018-02-19 06:52] VITALS: BP 118/68; PULSE 92; TEMP 97.8
[2018-02-19] MEDS: NICOTINE 21MG/24HR PATCH TRANSDERM SCH (08:01)
[2018-02-19] MEDS: FLUoxetine HCL 10 MG CAP PO SCH (08:02)
[2018-02-19] MEDS: BACITRACIN OINT 1 EACH PACKET TOPICAL SCH (08:02)
[2018-02-19] MEDS: CEPHALEXIN 500 MG CAP PO SCH (08:03)
--- NOTE | 2018-02-19 09:46 | P.DS ---
Providers Date of admission: 02/14/18 05:09 Expected date of discharge: 02/19/18 Attending physician: Angelica Evangleista MD Consults: 02/14/18 08:41 Consult Physician Routine Consulting Provider: Fifi Montalvo Consult Reason/Comments: h and p, eval and tx, r/o metabolic disorder Do you want consulting provider notified?: Yes, Notify in am [facility] Course: Discharge Diagnosis: Major depressive disorder, recurrent, moderate severity Reason for Admission: Patient is a 27-year-old male who was brought in by the police after cutting his arm. Patient refused to speak with me, he was approached multiple times in his room and on the last occasion was approached with nursing staff. Patient continued to lie in his bed with the covers pulled up over his head and refused to speak stating at one point that it wouldn't do any good and at another point that he "wanted to talk to an sanitation manager". Patient refused to get up and speak with me, I discussed with the patient that if he did not get up and speak with me I would be compelled to complete the second certification based on what was provided on the petition and first surgery as well as the record from the emergency room. He continued to refuse to respond to questions and so a second certification was completed. Patient was seen on second hospital day and was cooperative. Patient states he was brought here by the police after his father called him because he had an episode of anger where he was cutting himself to avoid mental pain and anguish. He states that he constantly feels hopeless and worthless, wants to has thoughts of suicide and has made plans but states that he doesn't really want to complete suicide. He states that he's been depressed since the age of 12 and has tried 7 times in the past as a child trying to hang himself but always stopped himself because he didn't want to do that to his parents and stated that no one knew he was doing that and so was never treated. Patient states that he was constantly bullied at school because of his physical stature as well as the fact that he was a nerd who played video games and he never fought back. He was seen in counseling at multiple different clinics before cause of this but was never treated with any medication. Patient continues to report being bullied by other adult states that he gets into arguments with people most of the time and feels worthless hopeless and states that he has little pleasure in life. He states that he has few friends and socially isolative and that his world revolves around his . Patient states that he is always negative and always angry complains all the time getting into verbal arguments using profanity. Patient complains that the man who rents a warehouse behind him is always having propane leaks, car exhaust and generator fumes to bother the patient. Patient states he was placed on Adderall as a child for 3 years but stopped it because it really wasn't the issue. Patient was admitted here in May 2017 and placed on Remeron he states that he did not follow up after discharge or continue taking the medication. Patient reports no other psychiatric treatment. Patient states that he began using marijuana at the age of 18 on a daily basis and now has a medical card for and has used since the age 21. He states between the ages of [age] he was using any drug he could get his hands on such as methamphetamine heroin crack another's no IV use. States that he was also drinking heavily at that time until he passed out. Patient denies any current use of any drugs other than marijuana and no alcohol use currently. Patient is adopted states his relationship with his adoptive parents is good. 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 He was in May 2017 they've been together for 2 years and have no children. Patient states that they have financial difficulties. Patient was charged with criminal sexual conduct at the age of 19 and served 2-1/2 years in long-term and is a registered sex offender. He was also charged with full and is assaulted the age of 16 and possession of marijuana. Patient does not endorse any psychotic symptoms, nor manic symptoms and no complaints of anxiety symptoms. Patient states that he is currently feeling hopeless, helpless and worthless and states that he is not currently having any suicidal ideation and no thoughts to cut himself. Patient states that he has no sleep or appetite disturbance and did get up this morning to eat. Patient states that he is always angry getting into arguments with people and states that he his thoughts are always negative and he is always complaining. He reports that he has few friends continues to play video games but not for long because he gets bored easily. Hospital Course: Patient was admitted on an involuntary basis as on the first hospital day the patient would not speak with me, leave his room or respond to any questions. On the second hospital day the patient was more cooperative and did discuss his prior symptoms and the fact that he is always angry, negative and always feeling depressed, hopeless, worthless and helpless. Patient states that he is also feeling irritable all of the time and on edge. Patient and I discussed medications to target his symptoms of depression and he was agreeable to beginning Prozac 10 mg in the morning. Patient never attended groups or activities on the unit instead was found walking on the unit with another peer. Patient reported he was not having any suicidal ideation, his sleep was better and his appetite was good. Patient states that he felt less irritable, was not as angry on the unit there were no outbursts while he was on the unit and the patient was cooperative with medication and staff. Patient reported that he was not feeling as irritable, no longer feeling helpless, hopeless or worthless and was interested in follow-up counseling. Patient reported no side effects from the medication, at his deferral meeting he deferred and the patient felt he was ready for discharge. Patient will also continue his course of antibiotic treatment for his lacerations on his forearm. Allergies poison deanna extract Allergy (Severe, Verified 02/14/18 03:00) Rash/Hives strawberry Allergy (Verified 02/14/18 03:00) Rash/Hives Laboratory Last Values WBC 10.2 k/uL (3.8-10.6) 02/14/18 10:55 RBC 4.64 m/uL (4.30-5.90) 02/14/18 10:55 Hgb 13.7 gm/dL (13.0-17.5) 02/14/18 10:55 Hct 43.1 % (39.0-53.0) 02/14/18 10:55 MCV 93.0 fL (80.0-100.0) 02/14/18 10:55 MCH 29.5 pg (25.0-35.0) 02/14/18 10:55 MCHC 31.8 g/dL (31.0-37.0) 02/14/18 10:55 RDW 12.4 % (11.5-15.5) 02/14/18 10:55 Plt Count 179 k/uL (150-450) 02/14/18 10:55 Neutrophils % 65 % 02/14/18 10:55 Lymphocytes % 23 % 02/14/18 10:55 Monocytes % 6 % 02/14/18 10:55 Eosinophils % 4 % 02/14/18 10:55 Basophils % 1 % 02/14/18 10:55 Neutrophils # 6.6 k/uL (1.3-7.7) 02/14/18 10:55 Lymphocytes # 2.4 k/uL (1.0-4.8) 02/14/18 10:55 Monocytes # 0.6 k/uL (0-1.0) 02/14/18 10:55 Eosinophils # 0.4 k/uL (0-0.7) 02/14/18 10:55 Basophils # 0.1 k/uL (0-0.2) 02/14/18 10:55 Sodium 144 mmol/L (137-145) 02/14/18 10:55 Potassium 4.5 mmol/L (3.5-5.1) 02/14/18 10:55 Chloride 111 mmol/L (98-107) H 02/14/18 10:55 Carbon Dioxide 27 mmol/L (22-30) 02/14/18 10:55 Anion Gap 6 mmol/L 02/14/18 10:55 BUN 11 mg/dL (9-20) 02/14/18 10:55 Creatinine 0.80 mg/dL (0.66-1.25) 02/14/18 10:55 Est GFR (CKD-EPI)AfAm >90 (>60 ml/min/1.73 sqM) 02/14/18 10:55 Est GFR (CKD-EPI)NonAf >90 (>60 ml/min/1.73 sqM) 02/14/18 10:55 Glucose 83 mg/dL (74-99) 02/14/18 10:[address] Glu mg/dL 103 02/14/18 10:55 Hemoglobin A1c 5.2 % (4.0-6.0) 02/14/18 10:55 Calcium 9.5 mg/dL (8.4-10.2) 02/14/18 10:55 Total Bilirubin 0.7 mg/dL (0.2-1.3) 02/14/18 10:55 AST 26 U/L (17-59) 02/14/18 10:55 ALT 28 U/L (21-72) 02/14/18 10:55 Alkaline Phosphatase 68 U/L (38-126) 02/14/18 10:55 Total Protein 6.7 g/dL (6.3-8.2) 02/14/18 10:55 Albumin 4.1 g/dL (3.5-5.0) 02/14/18 10:55 Triglycerides 51 mg/dL (<150) 02/14/18 10:55 Cholesterol 109 mg/dL (<200) 02/14/18 10:55 LDL Cholesterol, Calc 54 mg/dL (0-99) 02/14/18 10:55 HDL Cholesterol 45 mg/dL (40-60) 02/14/18 10:55 TSH 1.730 mIU/L (0.465-4.680) 02/14/18 10:55 Urine Color Yellow 02/16/18 13:54 Urine Appearance Clear (Clear) 02/16/18 13:54 Urine pH 6.5 (5.0-8.0) 02/16/18 13:54 Ur Specific [place] 1.014 (1.001-1.035) 02/16/18 13:54 Urine Protein Negative (Negative) 02/16/18 13:54 Urine Glucose (UA) Negative (Negative) 02/16/18 13:54 Urine Ketones Negative (Negative) 02/16/18 13:54 Urine Blood Negative (Negative) 02/16/18 13:54 Urine Nitrite Negative (Negative) 02/16/18 13:54 Urine Bilirubin Negative (Negative) 02/16/18 13:54 Urine Urobilinogen <2.0 mg/dL (<2.0) 02/16/18 13:54 Ur Leukocyte Esterase Negative (Negative) 02/16/18 13:54 Urine Opiates Screen Not Detected (NotDetected) 02/14/18 00:50 Ur Oxycodone Screen Not Detected (NotDetected) 02/14/18 00:50 Urine Methadone Screen Not Detected (NotDetected) 02/14/18 00:50 Ur Propoxyphene Screen Not Detected (NotDetected) 02/14/18 00:50 Ur Barbiturates Screen Not Detected (NotDetected) 02/14/18 00:50 U Tricyclic Antidepress Not Detected (NotDetected) 02/14/18 00:50 Ur Phencyclidine Scrn Not Detected (NotDetected) 02/14/18 00:50 Ur Amphetamines Screen Not Detected (NotDetected) 02/14/18 00:50 U Methamphetamines Scrn Not Detected (NotDetected) 02/14/18 00:50 U Benzodiazepines Scrn Not Detected (NotDetected) 02/14/18 00:50 Urine Cocaine Screen Not Detected (NotDetected) 02/14/18 00:50 U Marijuana (THC) Screen Detected (NotDetected) H 02/14/18 00:50 Discharge Mental Status: Appearance/Attitude: Patient is casually dressed, makes good eye contact and is cooperative. Behavior: Patient does not display any psychomotor agitation or retardation. Speech/Language: Patient's speech is spontaneous of normal volume and rhythm and he is coherent Thought Process: Patient is goal-directed there is no evidence of loose associations or flight of ideas Thought Content: Patient denies any auditory or visual hallucinations and no delusions or paranoid ideation or elicited. Patient reports that he is no longer feeling hopeless, helpless or worthless and states that he is feeling less irritable and angry. He states that his outlook is more positive. Patient states that his sleep and appetite are good. Suicidal/Homicidal Ideation: Patient denies any current suicidal or homicidal ideation Sensorium/Cognition: Patient is alert and oriented to person, place, and time and his recent and remote memory are grossly intact Mood/Affect: Patient's mood is less depressed and his affect is appropriate Insight/Judgment: Patient's insight and judgment are fair Risk Assessment: Patient's risk for readmission/suicide is low as patient is open to outpatient follow-up, has no prior history of suicide attempts Discharge Plan: Patient will return to live with his , he will [facility] up at [facility] for an intake. Patient and I discussed continuing Prozac 10 mg in the morning, he also wishes to continue with the nicotine patches and will complete the course of Keflex and will be prescribed these 3 medications. Patient was advised to be compliant with medication and follow-up appointments and was also advised to avoid all alcohol and drugs. patient was advised to apply bacitracin twice a day to lacerations and follow up with his PCP. Patient Condition at Discharge: Stable Plan - Discharge Summary New Discharge Prescriptions: New Cephalexin [Keflex] 500 mg PO BID #5 cap FLUoxetine HCL [PROzac] 10 mg PO DAILY #14 cap Nicotine 21Mg/24Hr Patch [Habitrol] 1 patch TRANSDERM DAILY #28 patch Discharge Medication List Cephalexin [Keflex] 500 mg PO BID #5 cap 02/19/18 [Rx] FLUoxetine HCL [PROzac] 10 mg PO DAILY #14 cap 02/19/18 [Rx] Nicotine 21Mg/24Hr Patch [Habitrol] 1 patch TRANSDERM DAILY #28 patch 02/19/18 [ Rx] Follow up Appointment(s)/Referral(s): [facility] [Outside] - 1-2 Days (walk in intake today until 3pm Tomorrow, 830 - 3pm Saturday 830 - 3pm) Teddy Rodriguez MD [Primary Care Provider] - 1-2 days Activity/Diet/Wound Care/Special Instructions: activity and diet as tolerated. no guns or weapons in the home. no alcohol or street drugs not ordered by a physician. attend all follow up appointments as scheduled. take medications as prescribed. return to the [facility] if symptoms worsen Discharge Disposition: HOME SELF-CARE
== END 2018-02-19 12:11 | disposition home or self-care (01) | DRG 885 ==
LOC: EC 00:36 → 3MHU 05:09
PROVIDERS: ADMIT Psychiatry & Neurology Psychiatry; ATTEND Psychiatry & Neurology Psychiatry
DX: F33.1 Major depressive disorder, recurrent, moderate (principal); F17.200 Nicotine dependence, unspecified, uncomplicated; F22 Delusional disorders; F41.9 Anxiety disorder, unspecified; M19.141 Post-traumatic osteoarthritis, right hand; S62.91XS Unspecified fracture of right hand, sequela; S51.812A Laceration without foreign body of left forearm, initial encounter; X78.1XXA Intentional self-harm by knife, initial encounter; Z87.442 Personal history of urinary calculi; Z91.5 Personal history of self-harm; G43.909 Migraine, unspecified, not intractable, without status migrainosus; G47.00 Insomnia, unspecified; F12.10 Cannabis abuse, uncomplicated; Z71.51 Drug abuse counseling and surveillance of drug abuser
CPT/HCPCS: 12002; 80053; 80061; 80306; 81003; 82075; 83036; 84443; 85025; 96372; 99285

== ENCOUNTER 2018-03-25 20:52 | Emergency (ER) | payer OTHER ==
--- NOTE | 2018-03-25 21:31 | ED ---
Extremity Problem HPI - General Chief complaint: Extremity Problem,Nontraumatic Stated complaint: right arm swelling Time Seen by Provider: 03/25/18 21:01 Source: patient Mode of arrival: ambulatory Limitations: no limitations - History of Present Illness MD Complaint: extremity pain, extremity swelling Onset/Timin -: hour(s) Location: right, upper extremity History of Same: No Radiation: none Quality: aching Consistency: constant Improves with: nothing Worsens with: other (Movement) Associated Symptoms: denies other symptoms - Related Data Home Medications Medication Instructions Recorded Confirmed Ansmult-Aco[place]-Tsyb [id number] 2 tab PO Q4HR PRN 03/25/18 03/25/18 [Excedrin] Previous Rx's Medication Instructions Recorded Sulfamethox-Tmp 800-160Mg [Bactrim 2 each PO Q12HR #28 tab 03/26/18 Ds] Allergies Allergy/AdvReac Type Severity Reaction Status Date / Time poison deanna extract Allergy Severe Rash/Hives Verified 03/25/18 21:04 strawberry Allergy Rash/Hives Verified 03/25/18 21:04 Review of Systems ROS Statement: Those systems with pertinent positive or pertinent negative responses have been documented in the HPI. ROS Other: All systems not noted in ROS Statement are negative. Constitutional: Denies: fever, chills, weakness Respiratory: Denies: cough, dyspnea Cardiovascular: Denies: chest pain, palpitations Gastrointestinal: Denies: abdominal pain, vomiting Musculoskeletal: Denies: back pain Skin: Reports: change in color. Denies: rash Neurological: Denies: headache, weakness, numbness, paresthesias Past Medical History Past Medical History: Osteoarthritis (OA) Additional Past Medical History / Comment(s): kidney stones, migraines, " neck", insomnia, arthritis in rt hand from previous fx, History of Any Multi-Drug Resistant Organisms: None Reported Past Surgical History: No Surgical Hx Reported Past Anesthesia/Blood Transfusion Reactions: No Reported Reaction Additional Past Anesthesia/Blood Transfusion Reaction / Comment(s): miltary neck - states he can move neck forward and back with no difficulty. no family history Past Psychological History: Anxiety, Depression Smoking Status: Current every day smoker Past Alcohol Use History: None Reported Past Drug Use History: Marijuana - Past Family History family Family Medical History: Unable to Obtain Additional Family Medical History / Comment(s): no family hx General Exam Limitations: no limitations General appearance: alert, in no apparent distress Head exam: Present: atraumatic, normocephalic Eye exam: Present: normal appearance. Absent: scleral icterus, conjunctival injection Respiratory exam: Present: normal lung sounds bilaterally. Absent: respiratory distress, wheezes, rales, rhonchi, stridor Cardiovascular Exam: Present: regular rate, normal rhythm, normal heart sounds. Absent: systolic murmur, diastolic murmur, rubs, gallop Back exam: Present: normal inspection Neurological exam: Present: alert. Absent: motor sensory deficit Skin exam: Present: warm, dry, intact, other (The right upper extremity is mildly cyanotic. Capillary refill is normal.). Absent: rash Course Vital Signs 03/25/18 03/25/18 03/26/18 20:55 21:37 00:12 Temperature 99.7 F H 98.6 F Pulse Rate 79 71 Respiratory 18 16 Rate Blood Pressure 118/64 114/57 Blood Pressure 144/68 [Right Arm] O2 Sat by Pulse 99 99 Oximetry Medical Decision Making - Lab Data Result diagrams: 03/25/18 22:29 03/25/18 22:29 Lab Results 03/25/18 03/25/18 03/25/18 Range/Units 22:29 22:29 22:29 WBC 15.6 H (3.8-10.6) k/uL RBC 4.67 (4.30-5.90) m/uL Hgb 13.7 (13.0-17.5) gm/dL Hct 43.8 (39.0-53.0) % MCV 93.8 (80.0-100.0) fL MCH 29.3 (25.0-35.0) pg MCHC 31.3 (31.0-37.0) g/dL RDW 12.3 (11.5-15.5) % Plt Count 172 (150-450) k/uL Neutrophils % 75 % Lymphocytes % 16 % Monocytes % 5 % Eosinophils % 3 % Basophils % 0 % Neutrophils # 11.7 H (1.3-7.7) k/uL Lymphocytes # 2.4 (1.0-4.8) k/uL Monocytes # 0.7 (0-1.0) k/uL Eosinophils # 0.5 (0-0.7) k/uL Basophils # 0.1 (0-0.2) k/uL Sodium 139 (137-145) mmol/L Potassium 4.1 (3.5-5.1) mmol/L Chloride 105 (98-107) mmol/L Carbon Dioxide 26 (22-30) mmol/L Anion Gap 8 mmol/L BUN 16 (9-20) mg/dL Creatinine 0.98 (0.66-1.25) mg/dL Est GFR (CKD-EPI)AfAm >90 (>60 ml/min/1.73 sqM) Est GFR (CKD-EPI)NonAf >90 (>60 ml/min/1.73 sqM) Glucose 95 (74-99) mg/dL Calcium 9.3 (8.4-10.2) mg/dL CK-MB (CK-2) 0.3 (0.0-2.4) ng/mL C-Reactive Protein <5.0 (<10.0) mg/L Disposition Clinical Impression: Swelling of arm Disposition: HOME SELF-CARE Condition: Fair Instructions: Edema (ED) Prescriptions: Sulfamethox-Tmp 800-160Mg [Bactrim Ds] 2 each PO Q12HR #28 tab Referrals: Teddy Rodriguez MD [Primary Care Provider] - 1-2 days Jonathan Estrada DO [Doctor of Osteopathic Medicine] - 1-2 days
--- NOTE | 2018-03-25 22:20 | US ---
EXAMINATION TYPE: US venous doppler duplex UE RT DATE OF EXAM: 03/25/2018 COMPARISON: NONE CLINICAL HISTORY: Pain. Right arm pain and swelling SIDE PERFORMED: Right Right Arm: Negative for DVT No evidence of DVT right arm. IMPRESSION: No evidence of deep venous thrombosis in the right arm involving subclavian axillary and brachial vei n. Internal jugular vein is patent.
[2018-03-25 22:44] LABS: Basophils # (A) 0.1 k/uL (0-0.2); Basophils % (A) 0 %; Eosinophils # (A) 0.5 k/uL (0-0.7); Eosinophils % (A) 3 %; HCT 43.8 % (39.0-53.0); HGB 13.7 gm/dL (13.0-17.5); Lymphocytes # (A) 2.4 k/uL (1.0-4.8); Lymphocytes % (A) 16 %; MCH 29.3 pg (25.0-35.0); MCHC 31.3 g/dL (31.0-37.0); MCV 93.8 fL (80.0-100.0); Mean Platelet Volume 7.4; Monocytes # (A) 0.7 k/uL (0-1.0); Monocytes % (A) 5 %; Neutrophils # (A) 11.7 k/uL (1.3-7.7); Neutrophils % (A) 75 %; Platelet Count 172 k/uL (150-450); RBC 4.67 m/uL (4.30-5.90); RDW 12.3 % (11.5-15.5); WBC 15.6 k/uL (3.8-10.6)
[2018-03-25 22:55] LABS: Anion Gap 8 mmol/L; Blood Urea Nitrogen 16 mg/dL (9-20); C Reactive Protein <5.0 mg/L (<10.0); Calcium 9.3 mg/dL (8.4-10.2); Carbon Dioxide 26 mmol/L (22-30); Chloride 105 mmol/L (98-107); Glucose 95 mg/dL (74-99); Potassium 4.1 mmol/L (3.5-5.1); Sodium 139 mmol/L (137-145)
--- NOTE | 2018-03-25 23:54 | CT ---
EXAMINATION TYPE: CT angio upper extremity RT DATE OF EXAM: 03/25/2018 11:44 PM COMPARISON: None HISTORY: right arm pain and swelling, no injury CT DLP: 1031.0 mGycm Automated exposure control for dose reduction was used. TECHNIQUE: Performed with IV Contrast, patient injected with 100 mL of Isovue 370. . There are 3-D post processed images. FINDINGS: There is arterial flow in the right axial brachial and subclavian artery. There is no evidence of dawit nosis or dissection. There is no evidence of an aneurysm. There is arterial flow in the radial and ul diane arteries down to the carpus. Detail of the arteries in the hand is limited. There is no evidence of a soft tissue mass. I see no pathologic fluid collection. Bony structures appear intact. IMPRESSION: NEGATIVE CT ANGIOGRAM OF THE RIGHT ARM.
[2018-03-25] MEDS ORDERED: AMPICILLIN-SULBACTAM 3 GM in SODIUM CHLORIDE 0.9% 100 ML IVPB STA (23:59)
[2018-03-26 00:15] VITALS: TEMP 98.6
[2018-03-26 02:38] VITALS: BP 112/54; PULSE 78; RESP 17
== END 2018-03-26 02:38 | disposition home or self-care (01) ==
LOC: EC 20:52
DX: M79.89 Other specified soft tissue disorders (principal); M79.601 Pain in right arm; F17.200 Nicotine dependence, unspecified, uncomplicated; Z91.048 Other nonmedicinal substance allergy status; Z91.018 Allergy to other foods
CPT/HCPCS: 36415; 80048; 82553; 85025; 86140; 93971; 73206; 99284; 96365; J0295; Q9967

== ENCOUNTER → 2018-04-21 | Outpatient (CLI) | payer OTHER ==
--- NOTE | 2018-04-21 10:19 | XR ---
EXAMINATION TYPE: XR chest 2V DATE OF EXAM: 04/21/2018 COMPARISON: NONE HISTORY: Vasculitis, pain in right arm TECHNIQUE: Frontal and lateral views of the chest are obtained. FINDINGS: There is no focal air space opacity, pleural effusion, or pneumothorax seen. The cardiac silhouette size is within normal limits. The osseous structures are intact. IMPRESSION: No acute cardiopulmonary process.
[2018-04-21 17:50] LABS: Albumin 4.4 g/dL (3.80-4.90); Albumin/Globulin Ratio 2.44 (1.20-2.10); Anion Gap 2.2 mmol/L (4.00-12.00); Calcium 9.1 mg/dL (8.7-10.3); Carbon Dioxide 26.8 mmol/L (21.6-31.8); Globulin 1.8 g/dL (2.1-3.7); Potassium 4.5 mmol/L (3.5-5.5); Total Bilirubin 0.8 mg/dL (0.3-1.2); Total Protein 6.2 g/dL (6.2-8.2)
[2018-04-21 18:09] LABS: Rheumatoid Factor 6 IU/mL (0-15)
== END | disposition home or self-care (01) ==
LOC: LABWHC1 08:49
DX: I77.6 Arteritis, unspecified (principal)
CPT/HCPCS: 36415; 71046; 80053; 85652; 86038; 86141; 86431

== ENCOUNTER → 2018-05-05 | Outpatient (CLI) | payer OTHER ==
--- NOTE | 2018-05-06 15:13 | XR ---
Right hand HISTORY: Pain 3 views of the right hand Bone mineralization, joint spaces and alignment are maintained. No fracture or dislocation. Some irre gularity of the fourth and fifth metacarpal may be due to remote trauma. IMPRESSION: Evidence of remote fractures.
== END ==
LOC: RADXRMAIN 16:17
DX: S69.91XA Unspecified injury of right wrist, hand and finger(s), initial encounter (principal)